=== PATIENT | male | born 1955 | race African-American/Black ===

== ENCOUNTER 2016-07-09 13:20 | Inpatient (IN) | payer MEDICARE, OTHER ==
[~2016-07-09] VITALS: Ht 185.4 cm; Wt 149.3 kg
[~2016-07-09 13:20] MED LIST: ALBU2.5V14 NEB; AMLO1TAB93 PO; ASPI325T4 PO; ASPI81TA9 PO; ATOR40TA59 PO; BUME1TAB PO; DILT120C97 PO; DILT90TA PO; FURO-68 PO; INSU100C SQ; INSU100I27 SQ; INSU100V13 SQ; IPRA4AER IH; ISOS30TA4 PO; ISOS40TA10 PO; LOSA1TAB16 PO; METO25TA4 PO; METO50TA2 PO; OXYC-250 PO; OXYC1TAB9 PO; POTA10TA10 PO; POTA10TA5 PO; SPIR25TA3 PO; TORS20TA2 PO; WARF10TA6 PO; WARF5TAB7 PO
[2016-07-09 14:31] LABS: BASO % 1 % (0-3); EOS % 3 % (0-3); HEMATOCRIT 43.7 % (39.0-53.0); LYMPH # 1.2 x10^3/uL (1.0-4.8); LYMPH % 17 % (24-48); MEAN CORPUSCULAR HEMOGLOBIN 31 pg (25-35); MEAN CORPUSCULAR HGB CONC 32 g/dL (31-37); MEAN CORPUSCULAR VOLUME 96 fL (79-100); MONO % 9 % (0-9); NEUT % 71 % (31-73); PLATELET COUNT 263 x10^3/uL (140-400); RED BLOOD COUNT 4.54 x10^6/uL (4.30-5.70); RED CELL DISTRIBUTION WIDTH 14.7 % (11.5-14.5); WHITE BLOOD COUNT 6.7 x10^3/uL (4.0-11.0)
[2016-07-09 14:44] LABS: CALCIUM 8.3 mg/dL (8.5-10.1); CREATININE 1.1 mg/dL (0.7-1.3); GFR 81.8; POTASSIUM 3.8 mmol/L (3.5-5.1)
--- NOTE | 2016-07-09 14:48 | EKG ---
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
--- NOTE | 2016-07-09 14:50 | RAD ---
Exam: AP portable chest. History: Shortness of breath for 2 days, worse lying down. Comparison: 06/26/2016. Findings: There is continued elevation of left hemidiaphragm. The heart and mediastinal structures are within normal limits for size. Lungs are without infiltrate. No pneumothorax or pleural effusion is appreciated. No failure is evident. Impression: 1. No acute cardiopulmonary process.
[2016-07-09] MEDS ORDERED: FUROSEMIDE 40 MG/4 ML VIAL. IVP ONE (15:15)
[2016-07-09] MEDS ORDERED: ONDANSETRON PF 4 MG/2 ML VIAL. IV PRN (15:30)
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
--- NOTE | 2016-07-09 17:12 | ACF ---
Admission Forms Criteria HEART FAILURE: COMMON COMPLICATIONS Clinical Indications for Inpatient Care (Place 'X' for any and all applicable criteria): Ongoing inpatient care may be indicated for heart failure with ANY ONE of the following (1)(2)(3)(4)(5): [ ]I. Ongoing need for care for primary condition requiring frequent therapy adjustments because of changes in cardiac function (eg, drug dosage changes for drugs that are renally metabolized) [ ]II. New-onset heart failure [ ]III. Heart failure with decreased urine output not responsive to attempts to optimize volume status [ ]IV. Acute cardiac ischemia causing or associated with failure [X]V. Complications of heart failure, including ANY ONE of the following: [ ]a) Pericardial effusion [ ]b) Symptomatic pleural effusion [ ]c) O2 saturation <90% or PO2 < 60 mm Hg (8.0 kPa) on room air or require baseline supplemental O2 [ ]d) Tachypnea [X]e) Dyspnea [ ]f) Syncope [ ]g) Change in mental status [ ]h) Acute renal insufficiency that is severe (reduction of more than 50% in estimated glomerular filtration rate from baseline) or progressive reduction of more than 25% in estimated glomerular filtration rate from baseline, with creatinine continuing to rise) [ ]i) Hemodynamic instability [ ]j) Anasarca [ ]k) Clinically significant metabolic abnormalities due to heart failure (eg, new-onset metabolic acidosis) Extended stay beyond goal length of stay for primary condition may be needed until ALL of the following are present(1)(3): [ ]a) Stable and effective diuretic regimen established (or patient on stable dialysis regimen if in chronic renal failure) [ ]b) Breathing comfortably at rest [ ]c) Saturation of arterial oxygen greater than 90% or at acceptable baseline [ ]d) Pulmonary edema absent or improved [ ]e) Hemodynamic stability [ ]f) Volume status acceptable on oral medication [ ]g) Peripheral or sacral edema absent or improved [ ]h) Renal function stable and manageable at a lower level of care [ ]i) Complications (eg, pleural effusion) resolved or manageable at a lower level of care [ ]j) Patient or caregiver has received written discharge instructions or educational material addressing activity level, diet, discharge medications, follow-up appointment, weight monitoring, and what to do if symptoms worsen The original [facility] [employer] content created by [employer] has been revised. The portions of the content which have been revised are identified through the use of italic text or in bold, and [facility] has neither reviewed nor approved the modified material.All other unmodified content is copyright [facility]. Please see references footnoted in the original [facility] edition 2016 Admission Criteria Met?: Yes ALLYN CHEW Jul 09, 2016 17:12
--- NOTE | 2016-07-09 18:55 | HP ---
ADMIT DATE: 07/09/2016 CHIEF COMPLAINT: Swollen legs and shortness of breath. HISTORY OF PRESENT ILLNESS: The patient is a pleasant 61-year-old male who has acute on chronic systolic and diastolic heart failure. Basically, he once again presents with shortness of breath and cough. He is swollen. He appears to be in clinical CHF. His BNP level is 812. I have discussed the case with the ER physician. We are going to admit the patient and consult Cardiology. PAST MEDICAL HISTORY: CHF, depression, anxiety, hypertension, diabetes, and hyperlipidemia. ALLERGIES: None. FAMILY HISTORY: Hypertension. SOCIAL HISTORY: Does not drink, smoke or take drugs. MEDICATIONS: Reviewed, please refer to the MRAD. REVIEW OF SYSTEMS: GENERAL: No history of weight change, weakness or fevers. SKIN: No bruising, hair changes or rashes. EYES: No blurred, double or loss of vision. NOSE AND THROAT: No history of nosebleeds, hoarseness or sore throat. HEART: No history of palpitations, chest pain or shortness of breath on exertion. LUNGS: Denies cough, hemoptysis, or wheezing. He complains of shortness of breath. GASTROINTESTINAL: Denies changes in appetite, nausea, vomiting, diarrhea or constipation. GENITOURINARY: No history of frequency, urgency, hesitancy or nocturia. NEUROLOGIC: Denies history of numbness, tingling, or tremor. He complains of weakness. PSYCHIATRIC: No history of panic, anxiety or depression. ENDOCRINE: No history of heat or cold intolerance, polyuria or polydipsia. EXTREMITIES: Denies muscle weakness, joint pain, pain on walking or stiffness. He complains of edema. PHYSICAL EXAMINATION: VITAL SIGNS: Temperature afebrile, pulse 68, respirations 18, and blood pressure 144/90. GENERAL: He is alert, cooperative, very pleasant. HEART: Normal S1, S2 with a soft S3. LUNGS: Diffuse crackles. ABDOMEN: Soft, positive bowel sounds, obese. EXTREMITIES: 2-3+ edema. SKIN: Thin and frail. ENDOCRINE: No thyromegaly. LYMPHATICS: No cervical nodes. HEMATOPOIETIC: He has got some slight stenosis on his arms. LABORATORY DATA: Pending. His BNP is 8. ASSESSMENT AND PLAN: Acute on chronic systolic and diastolic heart failure. The patient has been amenable, I gave him IV Lasix. Consult Cardiology, echocardiogram, serial enzymes, serial EKGs, cardiac monitoring, and home meds. NICKY RAUSCH DO DR: VASU/chandni JOB#: [id number] / [id number]
[2016-07-09] MEDS ORDERED: NON FORMULARY ITEM (Albuterol Sulfate (Albuterol Sulfate Conc Neb Soln) 1 VIAL) NEB PRN (20:00)
[2016-07-09] MEDS ORDERED: ALBUTEROL SULFATE 2.5 MG/3 ML NEBU. NEB PRN (20:15)
[2016-07-09] MEDS: OXYCODONE/APAP 10/325 TABLET. PO SCH (20:32)
[2016-07-09] MEDS: METOPROLOL TART IMMED RELEASE 50 MG TABLET. PO SCH (20:34)
[2016-07-09 20:41] LABS: INR 2.4 (0.8-1.1); PROTHROMBIN TIME PATIENT 24.5 SEC (11.7-14.0)
[2016-07-09] MEDS: INSULIN DETEMIR 300 UNITS/3 ML INSULN.PEN. SQ SCH ×2 (20:42→21:00)
[2016-07-09] MEDS ORDERED: NON FORMULARY ITEM (Insulin Detemir (Levemir) 40 UNIT) SQ SCH (21:00)
[2016-07-09] MEDS ORDERED: NON FORMULARY ITEM (Ipratropium/Albuterol Sulfate (Combivent Respimat Inhal) 2 INH) IH SCH (21:00)
[2016-07-09] MEDS ORDERED: WARFARIN 10 MG TABLET. PO SCH (21:00)
[2016-07-09] MEDS ORDERED: ATORVASTATIN CALCIUM 40 MG TABLET. PO SCH (21:00)
[2016-07-09 21:28] VITALS: BP 136/86
[2016-07-09] MEDS: IPRATRPIUM/ALBUTEROL 0.5/2.5MG 3 ML NEBU. NEB SCH (21:29)
[2016-07-09] MEDS ORDERED: MINERAL OIL/PETROLATUM TOPICAL CREAM 113GM JAR. TP PRN (23:00)
[2016-07-10] MEDS ORDERED: ALBUTEROL SULFATE 2.5 MG/3 ML NEBU. NEB PRN (01:00)
[2016-07-10] MEDS: OXYCODONE/APAP 10/325 TABLET. PO SCH ×2 (01:58→08:53)
[2016-07-10 02:30] VITALS: BP 155/104
[2016-07-10] MEDS ORDERED: LORAZEPAM 2 MG/ML VIAL. IV PRN (03:45)
[2016-07-10 05:09] LABS: BASO # 0.1 x10^3/uL (0.0-0.2); BASO % 1 % (0-3); EOS % 3 % (0-3); HEMATOCRIT 41.8 % (39.0-53.0); HEMOGLOBIN 14.1 g/dL (13.0-17.5); LYMPH # 1.9 x10^3/uL (1.0-4.8); LYMPH % 27 % (24-48); MEAN CORPUSCULAR HEMOGLOBIN 33 pg (25-35); MEAN CORPUSCULAR HGB CONC 34 g/dL (31-37); MEAN CORPUSCULAR VOLUME 97 fL (79-100); MONO % 13 % (0-9); NEUT % 56 % (31-73); PLATELET COUNT 242 x10^3/uL (140-400); RED BLOOD COUNT 4.31 x10^6/uL (4.30-5.70); RED CELL DISTRIBUTION WIDTH 14.8 % (11.5-14.5)
[2016-07-10 05:38] LABS: CALCIUM 8.4 mg/dL (8.5-10.1); GFR 91.3; POTASSIUM 3.6 mmol/L (3.5-5.1)
[2016-07-10 06:31] VITALS: BP 148/90
[2016-07-10] MEDS: IPRATRPIUM/ALBUTEROL 0.5/2.5MG 3 ML NEBU. NEB SCH ×2 (07:15→11:29)
[2016-07-10] MEDS ORDERED: INSULIN ASPART 300 UNITS/3 ML INSULN.PEN SQ SCH (07:30)
[2016-07-10] MEDS ORDERED: POTASSIUM CHLORIDE 10 MEQ TABLET.ER. PO SCH (08:00)
[2016-07-10] MEDS ORDERED: ASPIRIN ENTERIC COATED 81 MG TABLET.DR. PO SCH (08:00)
[2016-07-10] MEDS: METOPROLOL TART IMMED RELEASE 50 MG TABLET. PO SCH (08:50)
[2016-07-10 08:52] VITALS: BP 148/90
[2016-07-10] MEDS ORDERED: LOSARTAN POTASSIUM 50 MG TABLET. PO SCH (09:00)
[2016-07-10] MEDS ORDERED: DILTIAZEM HCL 120 MG CAP.ER.24H PO SCH (09:00)
[2016-07-10] MEDS ORDERED: BUMETANIDE 1 MG TABLET. PO SCH (09:00)
[2016-07-10] MEDS ORDERED: HYDROCHLOROTHIAZIDE 12.5 MG CAPSULE. PO SCH (09:00)
--- NOTE | 2016-07-10 09:03 | PDOC2 ---
ENEDINA LOCKE MARKETING SENIOR RECRUITER 07/10/16 0903: CARDIAC CONSULT DATE OF CONSULT Date of Consult DATE: 07/10/16 TIME: 08:51 REASON FOR CONSULT Reason for Consult: CHF exacerbation REFERRING PHYSICIAN Referring Physician: Chidi SOURCE Source: Chart review, Patient HISTORY OF PRESENT ILLNESS HISTORY OF PRESENT ILLNESS This is a 61 yo male admitted for complains of SOA and increasing leg edema. Pt currently denies any SOA and has been shouting, agitated, and displaying verbal abusive interaction to staff and security was notified and has been cooperative since. Pt lacks financial means as he verbalized that that he has been taking his medications routinely at home. From prior admission he has been noted with significant refusal with treatment adjustments. He continues to smoke tobacco as well. No notable CP, nausea, nor palpitations. Pt has been able to carry out conversation without SOA and at the time I ask him he has been having SOA he immediately said that "look at me (while he was hyperventilating) I am short of breath." PAST MEDICAL HISTORY Past Medical History Cardiovascular: AFIB, CHF (chronic diastolic), HTN, Hyperlipidemia Pulmonary: COPD CENTRAL NERVOUS SYSTEM: Peripheral neuropathy GI: GERD Psych: Addictions, bipolar? Musculoskeletal: Osteoarthritis Renal/: Chronic renal insuff Endocrine: Diabetes (with DPN), Hypothyroidism Dermatology: Other (venous stasis) PAST SURGICAL HISTORY Past Surgical History: Other (splenectomy) FAMILY HISTORY Family History: Hypertension SOCIAL HISTORY Smoke: 1 pack per day CURRENT MEDICATIONS CURRENT MEDICATIONS Current Medications Medications (Trade) Dose Ordered Sig/Nilton Route PRN Reason Start Time Stop Time Status Last Admin Dose Admin Furosemide (Lasix) 40 mg 1X ONCE IVP 07/09/16 15:15 07/09/16 15:18 DC 07/09/16 15:47 Atorvastatin Calcium (Lipitor) 40 mg QHS PO 07/09/16 21:00 07/09/16 20:33 Metoprolol Tartrate (Lopressor) 50 mg BID PO 07/09/16 21:00 07/09/16 20:34 Oxycodone/ Acetaminophen (Percocet 10/325) 2 tab QID PO 07/09/16 21:00 07/10/16 01:58 Warfarin Sodium (Coumadin) 10 mg QODAY@16 PO 07/09/16 21:00 07/09/16 22:49 Albuterol/ Ipratropium (Duoneb) 3 ml RTQID NEB 07/09/16 21:00 07/10/16 07:15 Albuterol Sulfate (Ventolin Neb Soln) 2.5 mg PRN Q4HRS PRN NEB SHORTNESS OF BREATH 07/10/16 01:00 07/10/16 02:18 ALLERGIES ALLERGIES: Coded Allergies: codeine (Verified Allergy, Intermediate, N/V, 04/05/15) MORPHINE OK ROS Review of System 14 point ROS evaluated with pertinent positives noted per HPI PHYSICAL EXAM General: Alert, Oriented X3, No acute distress HEENT: Atraumatic, Mucous membr. moist/pink Lungs: Clear to auscultation, Normal air movement Heart: Normal S1, Normal S2, Other (Controlled AFIB) Abdomen: Soft, Other (morbid obesity) Extremities: No cyanosis, Other (3+ bilateral LE pitting edema) Skin: No breakdown, No significant lesion Neuro: Normal speech, Sensation intact MUSCULOSKELETAL: Osteoarthritic changes both hands VITALS VITALS Vital Signs Date Time Temp Pulse Resp B/P Pulse Ox O2 Delivery O2 Flow Rate FiO2 07/10/16 07:16 95 Room Air 07/10/16 06:31 98.5 78 22 148/90 98.5 07/10/16 03:00 2.0 LABS Lab: Laboratory Tests Test 07/09/16 14:20 07/09/16 18:51 07/09/16 18:56 07/09/16 20:25 White Blood Count 6.7x10^3/uL (4.0-11.0) Red Blood Count 4.54x10^6/uL (4.30-5.70) Hemoglobin 14.0g/dL (13.0-17.5) Hematocrit 43.7% (39.0-53.0) Mean Corpuscular Volume 96fL (79-100) Mean Corpuscular Hemoglobin 31pg (25-35) Mean Corpuscular Hemoglobin Concent 32g/dL (31-37) Red Cell Distribution Width 14.7% (11.5-14.5) Platelet Count 263x10^3/uL (140-400) Neutrophils (%) (Auto) 71% (31-73) Lymphocytes (%) (Auto) 17% (24-48) Monocytes (%) (Auto) 9% (0-9) Eosinophils (%) (Auto) 3% (0-3) Basophils (%) (Auto) 1% (0-3) Neutrophils # (Auto) 4.7x10^3uL (1.8-7.7) Lymphocytes # (Auto) 1.2x10^3/uL (1.0-4.8) Monocytes # (Auto) 0.6x10^3/uL (0.0-1.1) Eosinophils # (Auto) 0.2x10^3/uL (0.0-0.7) Basophils # (Auto) 0.0x10^3/uL (0.0-0.2) Sodium Level 141mmol/L (136-145) Potassium Level 3.8mmol/L (3.5-5.1) Chloride Level 104mmol/L (98-107) Carbon Dioxide Level 31mmol/L (21-32) Anion Gap 6 (6-14) Blood Urea Nitrogen 19mg/dL (8-26) Creatinine 1.1mg/dL (0.7-1.3) Estimated GFR (Cockcroft-Gault) 81.8 Glucose Level 136mg/dL (70-99) Calcium Level 8.3mg/dL (8.5-10.1) Troponin I Quantitative < 0.017ng/mL (0.000-0.055) UV-Jjc-P-Type Natriuretic Peptide 812pg/mL (0-124) Glucose (Fingerstick) 112mg/dL (70-99) 123mg/dL (70-99) Prothrombin Time 24.5SEC (11.7-14.0) Prothromb Time International Ratio 2.4 (0.8-1.1) Test 07/10/16 04:35 White Blood Count 7.0x10^3/uL (4.0-11.0) Red Blood Count 4.31x10^6/uL (4.30-5.70) Hemoglobin 14.1g/dL (13.0-17.5) Hematocrit 41.8% (39.0-53.0) Mean Corpuscular Volume 97fL (79-100) Mean Corpuscular Hemoglobin 33pg (25-35) Mean Corpuscular Hemoglobin Concent 34g/dL (31-37) Red Cell Distribution Width 14.8% (11.5-14.5) Platelet Count 242x10^3/uL (140-400) Neutrophils (%) (Auto) 56% (31-73) Lymphocytes (%) (Auto) 27% (24-48) Monocytes (%) (Auto) 13% (0-9) Eosinophils (%) (Auto) 3% (0-3) Basophils (%) (Auto) 1% (0-3) Neutrophils # (Auto) 3.9x10^3uL (1.8-7.7) Lymphocytes # (Auto) 1.9x10^3/uL (1.0-4.8) Monocytes # (Auto) 0.9x10^3/uL (0.0-1.1) Eosinophils # (Auto) 0.2x10^3/uL (0.0-0.7) Basophils # (Auto) 0.1x10^3/uL (0.0-0.2) Sodium Level 139mmol/L (136-145) Potassium Level 3.6mmol/L (3.5-5.1) Chloride Level 102mmol/L (98-107) Carbon Dioxide Level 28mmol/L (21-32) Anion Gap 9 (6-14) Blood Urea Nitrogen 20mg/dL (8-26) Creatinine 1.0mg/dL (0.7-1.3) Estimated GFR (Cockcroft-Gault) 91.3 Glucose Level 203mg/dL (70-99) Calcium Level 8.4mg/dL (8.5-10.1) ECHOCARDIOGRAM ECHOCARDIOGRAM <Conclusion> Grossly normal LV systolic function and wall motion. EF 65% No significant valvular abnormalities. Unable to accurately assess diastolic function but do not suspect severe dysfunction. Technically limited study due to body habitus. DATE: 04/05/15 1938 ASSESSMENT/PLAN ASSESSMENT/PLAN 1. Suspect AECOPD with underlying DESEAN: no inhalers, defer to PCP 2. Chronic diastolic CHF: Currently no SOA. compensated. 3. Likely Chronic lymphedema with underlying venous insufficiency: no pain 4. Chronic AFIB: rate controlled. Coumadin on board with INR at 2.4 4. HTN: controlled 5. morbid obesity: BMI 43 6. DM2: uncontrolled BG 7. Noncompliance: known with recent hospitalization with refusal to treatment adjustments. 8. Tobaccoism 9. Agitation: manipulative behavior. Verbally abusive, security at the bedside and now cooperating. Recommendations 1. Lower leg compression stocking, elevation encouraged 2. Continue current diuretic therapy. 3. Continue with diltiazem, metoprolol and coumadin 4. Encouraged treatment compliance and lifestyle modifications Problems: MADDIE TEAGUE MD 07/10/16 1504: CARDIAC CONSULT ALLERGIES ALLERGIES: Coded Allergies: codeine (Verified Allergy, Intermediate, N/V, 04/05/15) MORPHINE OK ASSESSMENT/PLAN ASSESSMENT/PLAN Patient seen and examined. Agree with above nurse practitioner noted. Patient well known to me from his previous visits. He has psychiatric illness and is also noncompliant. He unfortunately did not want to stay in the hospital at his last visit when advised to do so given his decompensate heart failure. His home medications are unclear because the patient is not aware of what he is exactly taking. He has chronic pitting bilateral 3+ lower extremity edema with dyspnea as well as rales at the lung bases. We will continue aggressive diuresis. Unfortunately, patient has been combative and not keeping his IVs in. Supportive care at this time. He will ultimately likely to require home care to ensure that he has compliance with medications. Problems: ENEDINA LOCKE APRN Jul 10, 2016 09:03 MADDIE TEAGUE MD Jul 10, 2016 15:04
[2016-07-10] MEDS ORDERED: DEXTROSE 4 GM PO PRN (11:30)
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
[2016-07-10] MEDS ORDERED: WARFARIN 5 MG TABLET. PO SCH ×2 (16:00)
[2016-07-10] MEDS ORDERED: WARFARIN 4 MG TABLET. PO SCH (16:00)
== END 2016-07-10 14:25 | disposition home or self-care (01) | DRG 291 ==
LOC: ER 13:20 → 2 NORTH 15:23
PROVIDERS: ADMIT Internal Medicine; ATTEND Internal Medicine
DX: I50.43 Acute on chronic combined systolic (congestive) and diastolic (congestive) heart failure (principal); J96.20 Acute and chronic respiratory failure, unspecified whether with hypoxia or hypercapnia; Z68.41 Body mass index [BMI] 40.0-44.9, adult; J44.1 Chronic obstructive pulmonary disease with (acute) exacerbation; I11.0 Hypertensive heart disease with heart failure; E03.9 Hypothyroidism, unspecified; E11.65 Type 2 diabetes mellitus with hyperglycemia; E66.01 Morbid (severe) obesity due to excess calories; E78.5 Hyperlipidemia, unspecified; F17.200 Nicotine dependence, unspecified, uncomplicated; I25.10 Atherosclerotic heart disease of native coronary artery without angina pectoris; I48.2 Chronic atrial fibrillation; I87.2 Venous insufficiency (chronic) (peripheral); I87.8 Other specified disorders of veins; I89.0 Lymphedema, not elsewhere classified; K21.9 Gastro-esophageal reflux disease without esophagitis; F32.9 Major depressive disorder, single episode, unspecified; F41.9 Anxiety disorder, unspecified; M19.90 Unspecified osteoarthritis, unspecified site; Z91.19 Patient's noncompliance with other medical treatment and regimen; Z90.81 Acquired absence of spleen; Z82.49 Family history of ischemic heart disease and other diseases of the circulatory system; Z79.01 Long term (current) use of anticoagulants; Z88.6 Allergy status to analgesic agent
CPT/HCPCS: 36415; 71010; 80048; 82947; 83880; 84484; 85027; 85610; 93005; 94250; 94640; 94760; 96374; 99406; J1815; J1940; J7620; 99285-25

== ENCOUNTER 2016-08-06 22:59 | Emergency (ER) | payer OTHER, MEDICARE ==
[~2016-08-06] VITALS: Ht 188 cm; Wt 149.2 kg
[~2016-08-06 22:59] MED LIST changes: +ASPI-612 PO; -ASPI325T4 PO; +ASPI325T8 PO; -ASPI81TA9 PO; +DILT120C80 PO; -DILT120C97 PO; -OXYC-250 PO; +OXYC-328 PO; -POTA10TA10 PO; +POTA10TA12 PO
[2016-08-06 23:10] VITALS: BP 138/89
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
== END 2016-08-07 00:01 | disposition left against medical advice (07) ==
LOC: ER 22:59
DX: R60.9 Edema, unspecified (principal); I48.91 Unspecified atrial fibrillation; I11.0 Hypertensive heart disease with heart failure; I50.9 Heart failure, unspecified; I25.10 Atherosclerotic heart disease of native coronary artery without angina pectoris; J44.9 Chronic obstructive pulmonary disease, unspecified; E11.9 Type 2 diabetes mellitus without complications; Z90.81 Acquired absence of spleen; Z88.5 Allergy status to narcotic agent
CPT/HCPCS: 99284

== ENCOUNTER 2017-04-09 20:37 | Emergency (ER) | payer MEDICARE, OTHER ==
[2017-04-09 21:12] LABS: ADD MAN DIFF? NO
[2017-04-09 21:17] LABS: BASO # 0.1 x10^3/uL (0.0-0.2); BASO % 1 % (0-3); EOS # 0.4 x10^3/uL (0.0-0.7); EOS % 3 % (0-3); HEMATOCRIT 44.4 % (39.0-53.0); HEMOGLOBIN 14.8 g/dL (13.0-17.5); LYMPH # 1.9 x10^3/uL (1.0-4.8); LYMPH % 17 % (24-48); MEAN CORPUSCULAR HEMOGLOBIN 33 pg (25-35); MEAN CORPUSCULAR HGB CONC 33 g/dL (31-37); MEAN CORPUSCULAR VOLUME 97 fL (79-100); MONO # 1.2 x10^3/uL (0.0-1.1); MONO % 11 % (0-9); NEUT # 7.7 x10^3uL (1.8-7.7); NEUT % 68 % (31-73); PLATELET COUNT 324 x10^3/uL (140-400); RED BLOOD COUNT 4.57 x10^6/uL (4.30-5.70); RED CELL DISTRIBUTION WIDTH 15.5 % (11.5-14.5); WHITE BLOOD COUNT 11.3 x10^3/uL (4.0-11.0)
[2017-04-09 21:26] LABS: ANION GAP 8 (6-14); BLOOD UREA NITROGEN 26 mg/dL (8-26); CALCIUM 8.9 mg/dL (8.5-10.1); CARBON DIOXIDE 34 mmol/L (21-32); CHLORIDE 98 mmol/L (98-107); CREATININE 1.2 mg/dL (0.7-1.3); GFR 73.8; GLUCOSE 272 mg/dL (70-99); POTASSIUM 3.9 mmol/L (3.5-5.1); SODIUM 140 mmol/L (136-145)
[2017-04-09 21:32] LABS: ALBUMIN 3.3 g/dL (3.4-5.0); ALK PHOS 77 U/L (46-116); ALT (SGPT) 18 U/L (16-63); AST (SGOT) 24 U/L (15-37); DIRECT BILIRUBIN 0.1 mg/dL (0.0-0.2); LIPASE 72 U/L (73-393); TOTAL BILIRUBIN 0.3 mg/dL (0.2-1.0); TOTAL PROTEIN 7.8 g/dL (6.4-8.2)
[2017-04-09 21:35] LABS: TROPONINI < 0.017 ng/mL (0.000-0.055)
[2017-04-09 21:40] LABS: LACTIC ACID 1.5 mmol/L (0.4-2.0)
[2017-04-09 21:43] LABS: NT-PRO BNP 1029 pg/mL (0-124)
[2017-04-09 21:52] LABS: BILIRUBIN,URINE NEGATIVE (NEG); CLARITY,URINE CLOUDY; COLOR,URINE YELLOW; GLUCOSE,URINE 250 mg/dL (NEG); NITRITE,URINE NEGATIVE (NEG); PROTEIN,URINE NEGATIVE (NEG-TRACE)
[2017-04-09 21:57] LABS: INFLUENZA A PATIENT NEGATIVE (NEGATIVE); INFLUENZA B PATIENT NEGATIVE (NEGATIVE); OBC FLU VALID
[2017-04-09 21:58] LABS: BACTERIA,URINE 0 /HPF (0-FEW); RBC,URINE OCC /HPF (0-2); SQUAMOUS EPITHELIAL CELL,UR OCC /LPF
[2017-04-09] MEDS: OSELTAMIVIR 75 MG CAPSULE PO (22:40)
== END 2017-04-09 23:45 | disposition home or self-care (01) ==
LOC: ER 23:45
DX: R05 Cough (principal); R09.81 Nasal congestion; R10.9 Unspecified abdominal pain; I11.0 Hypertensive heart disease with heart failure; I50.9 Heart failure, unspecified; I48.91 Unspecified atrial fibrillation; E11.9 Type 2 diabetes mellitus without complications; I25.10 Atherosclerotic heart disease of native coronary artery without angina pectoris; J44.9 Chronic obstructive pulmonary disease, unspecified; Z90.81 Acquired absence of spleen; Z88.5 Allergy status to narcotic agent
CPT/HCPCS: 36415; 80048; 80076; 81001; 83605; 83690; 83880; 84484; 85025; 87086; 87804; 87804-59; 93005; 99285-25

== ENCOUNTER 2017-04-13 00:48 | Emergency (ER) | payer MEDICARE, OTHER ==
[2017-04-13] MEDS ORDERED: IOHEXOL 300 MG/ML 100ML VIAL. IV ×2 (01:30)
[2017-04-13] MEDS ORDERED: CONTRAST GIVEN MC ×2 (01:45)
[2017-04-13 02:22] LABS: ADD MAN DIFF? NO
[2017-04-13 02:30] LABS: BASO # 0.1 x10^3/uL (0.0-0.2); BASO % 1 % (0-3); EOS # 0.2 x10^3/uL (0.0-0.7); EOS % 3 % (0-3); HEMATOCRIT 44.7 % (39.0-53.0); LYMPH # 1.8 x10^3/uL (1.0-4.8); LYMPH % 20 % (24-48); MEAN CORPUSCULAR HEMOGLOBIN 33 pg (25-35); MEAN CORPUSCULAR HGB CONC 34 g/dL (31-37); MEAN CORPUSCULAR VOLUME 98 fL (79-100); MONO % 11 % (0-9); NEUT # 5.8 x10^3uL (1.8-7.7); NEUT % 65 % (31-73); PLATELET COUNT 326 x10^3/uL (140-400); RED BLOOD COUNT 4.58 x10^6/uL (4.30-5.70); RED CELL DISTRIBUTION WIDTH 15.3 % (11.5-14.5); WHITE BLOOD COUNT 8.9 x10^3/uL (4.0-11.0)
[2017-04-13 02:52] LABS: ANION GAP 6 (6-14); BLOOD UREA NITROGEN 44 mg/dL (8-26); BUN/CREATININE RATIO 26 (6-20); CALCIUM 8.8 mg/dL (8.5-10.1); CARBON DIOXIDE 35 mmol/L (21-32); CHLORIDE 96 mmol/L (98-107); CREATININE 1.7 mg/dL (0.7-1.3); GFR 49.3; GLUCOSE 348 mg/dL (70-99); SODIUM 137 mmol/L (136-145)
[2017-04-13 02:58] LABS: ALBUMIN 3.3 g/dL (3.4-5.0); ALBUMIN/GLOBULIN RATIO 0.8 (1.0-1.7); ALK PHOS 76 U/L (46-116); ALT (SGPT) 16 U/L (16-63); AST (SGOT) 21 U/L (15-37); TOTAL BILIRUBIN 0.2 mg/dL (0.2-1.0); TOTAL PROTEIN 7.2 g/dL (6.4-8.2)
[2017-04-13 03:03] LABS: NT-PRO BNP 550 pg/mL (0-124)
[2017-04-13 03:06] LABS: TROPONINI < 0.017 ng/mL (0.000-0.055)
[2017-04-13] MEDS ORDERED: KETOROLAC 30 MG/ML INJ. ×2 (03:06)
[2017-04-13] MEDS: KETOROLAC 30 MG/ML INJ. IV ×2 (03:30)
[2017-04-13 03:33] LABS: INR 1.2 (0.8-1.1); PROTHROMBIN TIME PATIENT 14.8 SEC (11.7-14.0)
[2017-04-13] MEDS: IV NORMAL SALINE 1000ML BAG 1,000 ML IV ×4 (04:15→04:20)
[2017-04-13] MEDS ORDERED: HALOPERIDOL LACTATE 5 MG/ML VIAL. IVP ×2 (05:00)
== END 2017-04-13 06:00 | disposition home or self-care (01) ==
LOC: ER 00:48
DX: K80.20 Calculus of gallbladder without cholecystitis without obstruction (principal); K57.30 Diverticulosis of large intestine without perforation or abscess without bleeding; I27.21 Secondary pulmonary arterial hypertension; I48.91 Unspecified atrial fibrillation; I11.0 Hypertensive heart disease with heart failure; I50.9 Heart failure, unspecified; I25.10 Atherosclerotic heart disease of native coronary artery without angina pectoris; E11.9 Type 2 diabetes mellitus without complications; J44.9 Chronic obstructive pulmonary disease, unspecified
CPT/HCPCS: 36415; 71250; 74176; 80053; 83880; 84484; 85025; 85610; 93005; 96361; 96374; 99285-25; J1885; J7030

== ENCOUNTER 2017-10-18 17:32 | Emergency (ER) | payer OTHER | END 2017-10-18 21:14 | disposition home or self-care (01) | LOC: ER 21:14 | DX: I48.91 Unspecified atrial fibrillation (principal); S80.02XA Contusion of left knee, initial encounter; S80.12XA Contusion of left lower leg, initial encounter; I11.0 Hypertensive heart disease with heart failure; I50.9 Heart failure, unspecified; J44.9 Chronic obstructive pulmonary disease, unspecified; E11.9 Type 2 diabetes mellitus without complications; I25.10 Atherosclerotic heart disease of native coronary artery without angina pectoris; Z90.49 Acquired absence of other specified parts of digestive tract; Z79.01 Long term (current) use of anticoagulants; Z88.5 Allergy status to narcotic agent; W10.9XXA Fall (on) (from) unspecified stairs and steps, initial encounter; Y93.01 Activity, walking, marching and hiking; Y99.8 Other external cause status; Y92.098 Other place in other non-institutional residence as the place of occurrence of the external cause | CPT/HCPCS: 73562; 73590; 99284 ==

== ENCOUNTER 2017-10-23 21:55 | Inpatient (IN) | payer MEDICARE, OTHER ==
[~2017-10-23] VITALS: Ht 180.3 cm; Wt 158.8 kg
[~2017-10-23 21:55] MED LIST changes: +BUME2TAB PO; +HYDR25TA9 PO; +INSU200I SQ; -LOSA1TAB16 PO; +LOSA1TAB19 PO; +LOSA50TA6 PO; -METO50TA2 PO; +METO50TA6 PO; +ONDA4TAB10 SL; +OSEL75CA PO; +OXYC-411 PO; -OXYC1TAB9 PO; -POTA10TA5 PO; +POTA20TA82 PO; -SPIR25TA3 PO; +SPIR25TA5 PO; +WARF-31 PO; +WARF10TA40 PO; +WARF10TA45 PO; -WARF10TA6 PO; +WARF3TAB50 PO; -WARF5TAB7 PO
[2017-10-23] MEDS ORDERED: fentaNYL PF VIAL 100 MCG/2 ML VIAL IV ONE (23:30)
[2017-10-23] MEDS ORDERED: IPRATRPIUM/ALBUTEROL 0.5/2.5MG 3 ML NEBU. NEB ONE (23:30)
[2017-10-23] MEDS ORDERED: FUROSEMIDE 20 MG/2 ML VIAL. IVP ONE (23:30)
--- NOTE | 2017-10-23 23:51 | RAD ---
Three-view left foot radiographs 10/23/2017 CLINICAL HISTORY: Left foot pain. AP, lateral and oblique digital radiographs of the left foot were obtained. There is diffuse osteopenia of the visualized bony structures. No fracture or dislocation left foot is seen. Pes planus deformity is noted. Soft tissue swelling is seen along the dorsal aspect of the left foot. Moderate enthesophyte formation is seen involving the posterior plantar aspect of the left calcaneus. Mild to moderate degenerative changes are seen throughout the interphalangeal and first MTP joint of the left foot along with the tarsometatarsal, midtarsal and talonavicular joints. IMPRESSION: Degenerative changes are seen involving the left foot as outlined above. No acute osseous abnormality is seen. Electronically signed by: Jhony Nair MD (10/23/2017 11:48 PM) [facility]
[2017-10-24] MEDS ORDERED: VANCOMYCIN 2 GM in IV NORMAL SALINE 500ML BAG 500 ML IV ONE ×2
--- NOTE | 2017-10-24 00:02 | RAD ---
AP portable chest radiograph 10/23/2017 Clinical History: Chest pain and shortness of breath. An AP erect portable digital radiograph of the chest was obtained. Comparison study is dated July 09, 2016. The cardiac silhouette is mildly enlarged. The thoracic aorta is mildly tortuous. Atherosclerotic calcification of the thoracic aorta is seen. Blunting of the left costophrenic angle is seen which may represent pleural thickening versus a small left pleural effusion, unchanged. No acute pulmonary infiltrate is noted. No pneumothorax is seen. Degenerative changes are seen involving the thoracic spine. Impression: No acute abnormality is seen. Electronically signed by: Jhony Nair MD (10/23/2017 11:58 PM) [facility]
--- NOTE | 2017-10-24 00:43 | RAD ---
EXAM: Left lower extremity venous Doppler. HISTORY: Left lower extremity pain/swelling. Bruising. COMPARISON: None. FINDINGS: Grayscale and Doppler analysis of the left lower extremity deep venous system was performed with graded compression and augmentation. The common femoral, greater saphenous, superficial femoral, popliteal and calf veins were assessed. There is no evidence of deep venous thrombosis. The calf veins are not well visualized. A left inguinal lymph node measures 1.8 x 1.5 cm and has a minimal fatty hilus. Another measures 1.6 x 1.2 cm also with cortical thickening. Another measures 3.0 x 1.2 cm and has a fatty hilus. IMPRESSION: 1. No evidence of deep venous thrombosis. 2. Prominent left inguinal lymph nodes. Correlate for left lower extremity inflammation or other potential causes. Electronically signed by: Adán Ritter MD (10/24/2017 12:39 AM) [facility]
[2017-10-24 00:53] LABS: BASO # 0.1 x10^3/uL (0.0-0.2); BASO % 1 % (0-3); EOS # 0.2 x10^3/uL (0.0-0.7); EOS % 3 % (0-3); HEMATOCRIT 40.1 % (39.0-53.0); HEMOGLOBIN 12.9 g/dL (13.0-17.5); LYMPH # 1.7 x10^3/uL (1.0-4.8); LYMPH % 20 % (24-48); MEAN CORPUSCULAR HEMOGLOBIN 32 pg (25-35); MEAN CORPUSCULAR HGB CONC 32 g/dL (31-37); MEAN CORPUSCULAR VOLUME 99 fL (79-100); MONO # 1.2 x10^3/uL (0.0-1.1); MONO % 14 % (0-9); NEUT # 5.3 x10^3uL (1.8-7.7); NEUT % 63 % (31-73); PLATELET COUNT 322 x10^3/uL (140-400); RED BLOOD COUNT 4.04 x10^6/uL (4.30-5.70); RED CELL DISTRIBUTION WIDTH 15.8 % (11.5-14.5); WHITE BLOOD COUNT 8.5 x10^3/uL (4.0-11.0)
[2017-10-24 00:56] LABS: PROTHROMBIN TIME PATIENT 32.1 SEC (11.7-14.0)
[2017-10-24 01:00] LABS: CALCIUM 8.9 mg/dL (8.5-10.1); GFR 40.9; POTASSIUM 3.9 mmol/L (3.5-5.1)
[2017-10-24 01:06] LABS: ALBUMIN 3.1 g/dL (3.4-5.0); ALBUMIN/GLOBULIN RATIO 0.6 (1.0-1.7); TOTAL BILIRUBIN 0.7 mg/dL (0.2-1.0); TOTAL PROTEIN 8.3 g/dL (6.4-8.2)
[2017-10-24 01:13] LABS: BILIRUBIN,URINE NEGATIVE (NEG); CLARITY,URINE CLEAR; COLOR,URINE YELLOW; NITRITE,URINE NEGATIVE (NEG); PH,URINE 5.5; PROTEIN,URINE NEGATIVE (NEG-TRACE)
[2017-10-24 01:19] LABS: BARBITURATES NEG (NEG); BENZODIAZEPINES NEG (NEG); CANNABINOIDS NEG (NEG); COCAINE POS (NEG); METHADONE NEG (NEG); OPIATES NEG (NEG); PHENCYCLIDINE NEG (NEG)
[2017-10-24 01:20] LABS: BACTERIA,URINE 0 /HPF (0-FEW); HYALINE CASTS, URINE MODERATE /HPF; SQUAMOUS EPITHELIAL CELL,UR FEW /LPF; WBC,URINE RARE /HPF (0-4)
[2017-10-24] MEDS: VANCOMYCIN PER PHARMACY MC PRN (01:22)
[2017-10-24 01:25] LABS: AMPHETAMINE/METHAMPHETAMINE NEG (NEG)
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
[2017-10-24] MEDS ORDERED: oxyCODONE/APAP 5/325 1 TAB TABLET PO ONE (02:45)
[2017-10-24 03:30] VITALS: BP 134/83
[2017-10-24] MEDS ORDERED: HYDR25TA9 PO (03:30)
[2017-10-24] MEDS ORDERED: oxyCODONE/APAP 10/325 1 TAB TABLET PO PRN (04:30)
[2017-10-24] MEDS ORDERED: fentaNYL PF VIAL 100 MCG/2 ML VIAL IV PRN (04:30)
[2017-10-24 07:00] VITALS: BP 104/70
[2017-10-24] MEDS: IPRATRPIUM/ALBUTEROL 0.5/2.5MG 3 ML NEBU. NEB SCH ×4 (07:23→19:55)
--- NOTE | 2017-10-24 07:31 | EKG ---
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
[2017-10-24] MEDS ORDERED: IPRATRPIUM/ALBUTEROL 0.5/2.5MG 3 ML NEBU. NEB SCH (08:00)
[2017-10-24] MEDS ORDERED: DEXTROSE 50% 25 GM / 50ML DISP.SYRIN. IV PRN (08:15)
[2017-10-24] MEDS ORDERED: ONDANSETRON ODT 4 MG TAB.RAPDIS. PO PRN (08:15)
[2017-10-24] MEDS: INSULIN LISPRO 300 UNITS/3 ML INSULN.PEN. SQ SCH ×5 (08:28→17:15)
[2017-10-24] MEDS ORDERED: ALBUTEROL SULFATE 2.5 MG/3 ML NEBU. NEB PRN (08:30)
[2017-10-24] MEDS: METOPROLOL TART IMMED RELEASE 50 MG TABLET. PO SCH ×2 (09:00→21:07)
[2017-10-24] MEDS: LOSARTAN POTASSIUM 50 MG TABLET. PO SCH (09:00)
[2017-10-24] MEDS: ASPIRIN ENTERIC COATED 81 MG TABLET.DR. PO SCH (09:31)
[2017-10-24] MEDS: hydroCHLOROthiazide 25 MG TABLET PO SCH (09:32)
[2017-10-24] MEDS: POTASSIUM CHLORIDE 20 MEQ TABLET.ER. PO SCH ×3 (09:32→17:19)
[2017-10-24] MEDS: BUMETANIDE 1 MG TABLET. PO SCH ×3 (09:37→17:19)
[2017-10-24] MEDS: oxyCODONE/APAP 10/325 1 TAB TABLET PO PRN ×2 (09:53→17:19)
[2017-10-24 11:00] VITALS: BP 125/75
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
[2017-10-24 15:00] VITALS: BP 134/65
--- NOTE | 2017-10-24 15:43 | RAD ---
Left knee, 2 views, 10/24/2017: HISTORY: Knee pain and swelling Comparison is made to a study from 10/18/2017. No fracture or dislocation is identified. There is minimal marginal spurring at the knee joint and at the patellofemoral articulation. No large joint effusion is seen. There is considerable generalized subcutaneous edema. IMPRESSION: 1. Mild degenerative change. 2. No acute bony abnormality is detected. 3. Moderate subcutaneous edema. Electronically signed by: Hernan Corcoran MD (10/24/2017 3:40 PM) [facility]
[2017-10-24 19:00] VITALS: BP 122/65
[2017-10-24] MEDS: INSULIN GLARGINE 300 UNITS/3 ML INSULN.PEN. SQ SCH (21:00)
[2017-10-24] MEDS: LACTOBACILLUS RHAMNOSUS GG 1 CAPSULE. PO SCH (21:07)
[2017-10-24] MEDS: ATORVASTATIN CALCIUM 40 MG TABLET. PO SCH (21:07)
[2017-10-25] VITALS (13 sets, daily range): BP systolic 91–142; BP diastolic 58–93
[2017-10-25] MEDS: VANCOMYCIN 2 GM in IV NORMAL SALINE 500ML BAG 500 ML IV SCH (00:28)
[2017-10-25] MEDS: oxyCODONE/APAP 10/325 1 TAB TABLET PO PRN (05:15)
[2017-10-25] MEDS: IPRATRPIUM/ALBUTEROL 0.5/2.5MG 3 ML NEBU. NEB SCH ×4 (07:22→20:03)
[2017-10-25] MEDS: INSULIN LISPRO 300 UNITS/3 ML INSULN.PEN. SQ SCH ×6 (08:00→18:06)
--- NOTE | 2017-10-25 08:02 | EKG ---
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
[2017-10-25] MEDS: LACTOBACILLUS RHAMNOSUS GG 1 CAPSULE. PO SCH ×2 (08:44→21:00)
[2017-10-25] MEDS: BUMETANIDE 1 MG TABLET. PO SCH ×3 (08:44→17:00)
[2017-10-25] MEDS: METOPROLOL TART IMMED RELEASE 50 MG TABLET. PO SCH ×2 (08:45→21:00)
[2017-10-25] MEDS: ASPIRIN ENTERIC COATED 81 MG TABLET.DR. PO SCH (08:45)
[2017-10-25] MEDS: POTASSIUM CHLORIDE 20 MEQ TABLET.ER. PO SCH ×3 (08:45→17:00)
[2017-10-25] MEDS: LOSARTAN POTASSIUM 50 MG TABLET. PO SCH (08:46)
[2017-10-25] MEDS: hydroCHLOROthiazide 25 MG TABLET PO SCH (08:49)
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
[2017-10-25] MEDS ORDERED: ACETAMINOPHEN 500 MG TABLET PO PRN (09:30)
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
[2017-10-25 12:20] LABS: BASE EXCESS ABG 10 mmol/L (-3-3); HCO3 ABG 44 mmol/L (21-28); PO2 ABG 89 mmHg (65-108); SAT O2 ABG 95 % (92-99)
[2017-10-25 12:47] LABS: FIO2 ABG 52; PCO2 ABG 134 mmHg (35-46)
--- NOTE | 2017-10-25 14:20 | RAD ---
EXAM: CHEST 1 VIEW History: Respiratory distress COMPARISON: 10/23/2017 TECHNIQUE: Single portable radiograph of the chest FINDINGS: Lung volumes and technique accentuates heart size and pulmonary vascularity. Unchanged moderate cardiomegaly. There is mild prominent appearing bilateral interstitial lung markings. The left costophrenic angle is not clearly identified due to patient body habitus. Mild left lung base airspace opacity could be due to overlapping soft tissue or atelectasis or infiltrate. IMPRESSION: 1. Mild congestive changes. 2. Mild left lung base airspace opacity could be atelectasis or infiltrate or due to overlapping soft tissue. Electronically signed by: Daniel Fang MD (10/25/2017 2:16 PM) [id number]
--- NOTE | 2017-10-25 14:21 | CONS ---
DATE OF CONSULTATION: ATTENDING PHYSICIAN: Dr. Roberts. REASON FOR CONSULTATION: [id number] hypercapnic respiratory failure. HISTORY OF PRESENT ILLNESS: The patient is a 62-year-old male who is morbidly obese with a BMI of 45.5. He has history of COPD, history of obstructive sleep apnea and suspected obesity hypoventilation syndrome. He was brought into the hospital after he was noted to have more swelling of his lower extremities. The patient was admitted with a diagnosis of cellulitis. His lower extremity Dopplers were negative. This morning, a rapid response was called as he was found to be lethargic. His arterial blood gases revealed a pH of 7.14, pCO2 of 130, pO2 of 89 and a bicarbonate of 44, suggesting acute on chronic hypercapnic respiratory failure. He did receive 2 tablets of oxycodone. The patient received Narcan and did woke up. He was immediately placed on BiPAP. I was consulted, and I have given the settings of the BiPAP. He is awake, following commands. He says he does not appear to be in any obvious respiratory distress. He admits to smoking 20 years of tobacco. He also has a urine drug screen positive for cocaine. Denies any headaches. No nausea, vomiting, no diarrhea. He has lower extremity edema with some rash. PAST MEDICAL HISTORY: History of AFib, history of CAD, history of CHF, COPD, type 2 diabetes, morbid obesity, history of DESEAN. PAST SURGICAL HISTORY: Cholecystectomy and colectomy. ALLERGIES: None. MEDICATIONS: All reviewed as listed in the MRAD including antibiotics. REVIEW OF SYSTEMS: Ten-point system review was obtained. Pertinent positives discussed in my history of present illness, otherwise noncontributory. All systems that were negative were reviewed as well. SOCIAL HISTORY: Smoked for 20 years before quitting. FAMILY HISTORY: Noncontributory to lungs. PHYSICAL EXAMINATION: GENERAL: He is awake, following commands, while on BiPAP. VITAL SIGNS: Blood pressure is 111/78, afebrile, pulse ox 93% on BiPAP 30% FiO2. HEENT: Sclerae nonicteric. NECK: Supple. LUNGS: Diminished breath sounds. CARDIOVASCULAR: Regular rate and rhythm. ABDOMEN: Soft, obese. EXTREMITIES: With bilateral pitting edema and erythema. LABORATORY DATA: Reviewed. ABGs are discussed in my history of present illness. His BUN and creatinine are 38 and 2.0. INR is 2.6. White cell count 8.5. IMPRESSION: 1. [id number] hypercapnic respiratory failure, contributed by narcotics and also related to underlying obesity hypoventilation syndrome. 2. Underlying chronic obstructive pulmonary disease. 3. Lower extremity edema with erythema, being treated for cellulitis. 4. Cocaine abuse. 5. Chronic anticoagulation with Coumadin. RECOMMENDATIONS: 1. The patient is much more awake, is status post Narcan. We will continue BiPAP for now and repeat ABGs in 2 hours. 2. Once the pH is compensated, then we will discontinue BiPAP. 3. Discontinue narcotics. 4. Antibiotics per Infectious Diseases. 5. Anticoagulation per PCP. 6. Continue bronchodilators. 7. Discussed with RN and RT. Critical care time 37 minutes. SHELLY CHA MD DR: ALLISON/chandni JOB#: [id number] / [id number]
[2017-10-25] MEDS: VANCOMYCIN PER PHARMACY MC PRN (14:34)
[2017-10-25 14:57] LABS: BASO % 1 % (0-3); EOS % 1 % (0-3); HEMATOCRIT 38.7 % (39.0-53.0); HEMOGLOBIN 12.5 g/dL (13.0-17.5); LYMPH # 0.9 x10^3/uL (1.0-4.8); LYMPH % 12 % (24-48); MEAN CORPUSCULAR HEMOGLOBIN 32 pg (25-35); MEAN CORPUSCULAR HGB CONC 32 g/dL (31-37); MEAN CORPUSCULAR VOLUME 99 fL (79-100); MONO # 1.2 x10^3/uL (0.0-1.1); MONO % 17 % (0-9); NEUT % 70 % (31-73); PLATELET COUNT 341 x10^3/uL (140-400); RED BLOOD COUNT 3.91 x10^6/uL (4.30-5.70); RED CELL DISTRIBUTION WIDTH 15.9 % (11.5-14.5); WHITE BLOOD COUNT 7.2 x10^3/uL (4.0-11.0)
[2017-10-25] MEDS ORDERED: NOREPINEPHRIN 8MG/250ML PREMIX 250 ML IV PRN (15:00)
[2017-10-25] MEDS ORDERED: IV NORMAL SALINE 1000ML BAG 1,000 ML IV ONE (15:00)
[2017-10-25] MEDS: NALOXONE 0.4 MG/ML VIAL. IV PRN ×2 (15:08→15:14)
[2017-10-25 15:13] LABS: CALCIUM 8.9 mg/dL (8.5-10.1); GFR 40.9; POTASSIUM 4.7 mmol/L (3.5-5.1)
[2017-10-25 15:19] LABS: ALBUMIN 2.6 g/dL (3.4-5.0); ALBUMIN/GLOBULIN RATIO 0.5 (1.0-1.7); MAGNESIUM 2.1 mg/dL (1.8-2.4); TOTAL BILIRUBIN 0.5 mg/dL (0.2-1.0); TOTAL PROTEIN 7.5 g/dL (6.4-8.2)
[2017-10-25] MEDS ORDERED: WARFARIN 6 MG TABLET. PO ONE (16:00)
[2017-10-25 16:16] LABS: BASE EXCESS ABG 7 mmol/L (-3-3); HCO3 ABG 34 mmol/L (21-28); PO2 ABG 67 mmHg (65-108); SAT O2 ABG 93 % (92-99)
[2017-10-25 16:23] LABS: FIO2 ABG 30; PCO2 ABG 61 mmHg (35-46)
[2017-10-25] MEDS: ATORVASTATIN CALCIUM 40 MG TABLET. PO SCH (19:43)
[2017-10-25] MEDS ORDERED: fentaNYL PF VIAL 100 MCG/2 ML VIAL IV PRN (20:30)
[2017-10-25] MEDS: INSULIN GLARGINE 300 UNITS/3 ML INSULN.PEN. SQ SCH (21:45)
[2017-10-26] VITALS (11 sets, daily range): BP systolic 108–129; BP diastolic 62–92
[2017-10-26] MEDS: HALOPERIDOL LACTATE 5 MG/ML VIAL. IVP PRN (00:42)
[2017-10-26 01:39] LABS: VANC TR 11.9 mcg/mL (10.0-20.0)
[2017-10-26] MEDS: VANCOMYCIN 2 GM in IV NORMAL SALINE 500ML BAG 500 ML IV SCH (02:07)
[2017-10-26] MEDS: VANCOMYCIN PER PHARMACY MC PRN (02:26)
[2017-10-26 05:09] LABS: PROTHROMBIN TIME PATIENT 29.9 SEC (11.7-14.0)
[2017-10-26 05:17] LABS: CALCIUM 8.2 mg/dL (8.5-10.1); CREATININE 1.7 mg/dL (0.7-1.3); GFR 49.3; POTASSIUM 3.7 mmol/L (3.5-5.1)
--- NOTE | 2017-10-26 06:56 | PDOC ---
PULMONARY PROGRESS NOTES Subjective on 02, used bipap for an hour, asking for pain meds constantly, has cough, sob better. Vitals Vital Signs Date Time Temp Pulse Resp B/P (MAP) Pulse Ox O2 Delivery O2 Flow Rate FiO2 10/26/17 05:14 106 129/80 (96) 98 Nasal Cannula 3.0 10/26/17 04:12 98.9 98.9 10/25/17 18:00 22 Comments ros as mentioned as above, other sys otherwise neg ROS: No Nausea General: Alert HEENT: Other (nc at perrl nose clear, shallow oropharynx. neck no lad, thyromegaly) Lungs: Crackles Cardiovascular: Other (irreg irreg) Abdomen: Soft, Non-tender, Other (no mass) Neuro Exam: Alert Extremities: Other (edema) Skin: Warm Labs Laboratory Tests Test 10/24/17 07:40 10/24/17 11:21 10/24/17 16:41 10/24/17 21:18 Glucose (Fingerstick) 307 mg/dL (70-99) 268 mg/dL (70-99) 101 mg/dL (70-99) 66 mg/dL (70-99) Test 10/25/17 00:54 10/25/17 07:34 10/25/17 11:28 10/25/17 11:55 Glucose (Fingerstick) 119 mg/dL (70-99) 203 mg/dL (70-99) 263 mg/dL (70-99) O2 Saturation 95 % (92-99) Arterial Blood pH 7.14 (7.35-7.45) Arterial Blood pCO2 at Patient Temp 134 mmHg (35-46) Arterial Blood pO2 at Patient Temp 89 mmHg (65-108) Arterial Blood HCO3 44 mmol/L (21-28) Arterial Blood Base Excess 10 mmol/L (-3-3) FiO2 52 Test 10/25/17 12:20 10/25/17 13:50 10/25/17 14:50 10/25/17 16:10 Prothrombin Time 27.0 SEC (11.7-14.0) Prothromb Time International Ratio 2.6 (0.8-1.1) Glucose (Fingerstick) 227 mg/dL (70-99) White Blood Count 7.2 x10^3/uL (4.0-11.0) Red Blood Count 3.91 x10^6/uL (4.30-5.70) Hemoglobin 12.5 g/dL (13.0-17.5) Hematocrit 38.7 % (39.0-53.0) Mean Corpuscular Volume 99 fL (79-100) Mean Corpuscular Hemoglobin 32 pg (25-35) Mean Corpuscular Hemoglobin Concent 32 g/dL (31-37) Red Cell Distribution Width 15.9 % (11.5-14.5) Platelet Count 341 x10^3/uL (140-400) Neutrophils (%) (Auto) 70 % (31-73) Lymphocytes (%) (Auto) 12 % (24-48) Monocytes (%) (Auto) 17 % (0-9) Eosinophils (%) (Auto) 1 % (0-3) Basophils (%) (Auto) 1 % (0-3) Neutrophils # (Auto) 5.0 x10^3uL (1.8-7.7) Lymphocytes # (Auto) 0.9 x10^3/uL (1.0-4.8) Monocytes # (Auto) 1.2 x10^3/uL (0.0-1.1) Eosinophils # (Auto) 0.0 x10^3/uL (0.0-0.7) Basophils # (Auto) 0.0 x10^3/uL (0.0-0.2) Sodium Level 137 mmol/L (136-145) Potassium Level 4.7 mmol/L (3.5-5.1) Chloride Level 96 mmol/L (98-107) Carbon Dioxide Level 40 mmol/L (21-32) Anion Gap 1 (6-14) Blood Urea Nitrogen 38 mg/dL (8-26) Creatinine 2.0 mg/dL (0.7-1.3) Estimated GFR (Cockcroft-Gault) 40.9 BUN/Creatinine Ratio 19 (6-20) Glucose Level 235 mg/dL (70-99) Lactic Acid Level 1.2 mmol/L (0.4-2.0) Calcium Level 8.9 mg/dL (8.5-10.1) Magnesium Level 2.1 mg/dL (1.8-2.4) Total Bilirubin 0.5 mg/dL (0.2-1.0) Aspartate Amino Transf (AST/SGOT) 16 U/L (15-37) Alanine Aminotransferase (ALT/SGPT) 15 U/L (16-63) Alkaline Phosphatase 72 U/L (46-116) Total Protein 7.5 g/dL (6.4-8.2) Albumin 2.6 g/dL (3.4-5.0) Albumin/Globulin Ratio 0.5 (1.0-1.7) Procalcitonin 0.24 ng/mL (0.00-0.10) O2 Saturation 93 % (92-99) Arterial Blood pH 7.37 (7.35-7.45) Arterial Blood pCO2 at Patient Temp 61 mmHg (35-46) Arterial Blood pO2 at Patient Temp 67 mmHg (65-108) Arterial Blood HCO3 34 mmol/L (21-28) Arterial Blood Base Excess 7 mmol/L (-3-3) FiO2 30 Test 10/25/17 21:41 10/26/17 00:35 10/26/17 04:00 Glucose (Fingerstick) 176 mg/dL (70-99) Vancomycin Level Trough 11.9 mcg/mL (10.0-20.0) Vancomycin Last Dose Date Vancomycin Last Dose Time Prothrombin Time 29.9 SEC (11.7-14.0) Prothromb Time International Ratio 2.9 (0.8-1.1) Sodium Level 135 mmol/L (136-145) Potassium Level 3.7 mmol/L (3.5-5.1) Chloride Level 97 mmol/L (98-107) Carbon Dioxide Level 35 mmol/L (21-32) Anion Gap 3 (6-14) Blood Urea Nitrogen 39 mg/dL (8-26) Creatinine 1.7 mg/dL (0.7-1.3) Estimated GFR (Cockcroft-Gault) 49.3 Glucose Level 111 mg/dL (70-99) Calcium Level 8.2 mg/dL (8.5-10.1) Laboratory Tests Test 10/25/17 07:34 10/25/17 11:28 10/25/17 11:55 10/25/17 12:20 Glucose (Fingerstick) 203 mg/dL (70-99) 263 mg/dL (70-99) O2 Saturation 95 % (92-99) Arterial Blood pH 7.14 (7.35-7.45) Arterial Blood pCO2 at Patient Temp 134 mmHg (35-46) Arterial Blood pO2 at Patient Temp 89 mmHg (65-108) Arterial Blood HCO3 44 mmol/L (21-28) Arterial Blood Base Excess 10 mmol/L (-3-3) FiO2 52 Prothrombin Time 27.0 SEC (11.7-14.0) Prothromb Time International Ratio 2.6 (0.8-1.1) Test 10/25/17 13:50 10/25/17 14:50 10/25/17 16:10 10/25/17 21:41 Glucose (Fingerstick) 227 mg/dL (70-99) 176 mg/dL (70-99) White Blood Count 7.2 x10^3/uL (4.0-11.0) Red Blood Count 3.91 x10^6/uL (4.30-5.70) Hemoglobin 12.5 g/dL (13.0-17.5) Hematocrit 38.7 % (39.0-53.0) Mean Corpuscular Volume 99 fL (79-100) Mean Corpuscular Hemoglobin 32 pg (25-35) Mean Corpuscular Hemoglobin Concent 32 g/dL (31-37) Red Cell Distribution Width 15.9 % (11.5-14.5) Platelet Count 341 x10^3/uL (140-400) Neutrophils (%) (Auto) 70 % (31-73) Lymphocytes (%) (Auto) 12 % (24-48) Monocytes (%) (Auto) 17 % (0-9) Eosinophils (%) (Auto) 1 % (0-3) Basophils (%) (Auto) 1 % (0-3) Neutrophils # (Auto) 5.0 x10^3uL (1.8-7.7) Lymphocytes # (Auto) 0.9 x10^3/uL (1.0-4.8) Monocytes # (Auto) 1.2 x10^3/uL (0.0-1.1) Eosinophils # (Auto) 0.0 x10^3/uL (0.0-0.7) Basophils # (Auto) 0.0 x10^3/uL (0.0-0.2) Sodium Level 137 mmol/L (136-145) Potassium Level 4.7 mmol/L (3.5-5.1) Chloride Level 96 mmol/L (98-107) Carbon Dioxide Level 40 mmol/L (21-32) Anion Gap 1 (6-14) Blood Urea Nitrogen 38 mg/dL (8-26) Creatinine 2.0 mg/dL (0.7-1.3) Estimated GFR (Cockcroft-Gault) 40.9 BUN/Creatinine Ratio 19 (6-20) Glucose Level 235 mg/dL (70-99) Lactic Acid Level 1.2 mmol/L (0.4-2.0) Calcium Level 8.9 mg/dL (8.5-10.1) Magnesium Level 2.1 mg/dL (1.8-2.4) Total Bilirubin 0.5 mg/dL (0.2-1.0) Aspartate Amino Transf (AST/SGOT) 16 U/L (15-37) Alanine Aminotransferase (ALT/SGPT) 15 U/L (16-63) Alkaline Phosphatase 72 U/L (46-116) Total Protein 7.5 g/dL (6.4-8.2) Albumin 2.6 g/dL (3.4-5.0) Albumin/Globulin Ratio 0.5 (1.0-1.7) Procalcitonin 0.24 ng/mL (0.00-0.10) O2 Saturation 93 % (92-99) Arterial Blood pH 7.37 (7.35-7.45) Arterial Blood pCO2 at Patient Temp 61 mmHg (35-46) Arterial Blood pO2 at Patient Temp 67 mmHg (65-108) Arterial Blood HCO3 34 mmol/L (21-28) Arterial Blood Base Excess 7 mmol/L (-3-3) FiO2 30 Test 10/26/17 00:35 10/26/17 04:00 Vancomycin Level Trough 11.9 mcg/mL (10.0-20.0) Vancomycin Last Dose Date Vancomycin Last Dose Time Prothrombin Time 29.9 SEC (11.7-14.0) Prothromb Time International Ratio 2.9 (0.8-1.1) Sodium Level 135 mmol/L (136-145) Potassium Level 3.7 mmol/L (3.5-5.1) Chloride Level 97 mmol/L (98-107) Carbon Dioxide Level 35 mmol/L (21-32) Anion Gap 3 (6-14) Blood Urea Nitrogen 39 mg/dL (8-26) Creatinine 1.7 mg/dL (0.7-1.3) Estimated GFR (Cockcroft-Gault) 49.3 Glucose Level 111 mg/dL (70-99) Calcium Level 8.2 mg/dL (8.5-10.1) Medications Active Scripts Medications Dose Route/Sig Max Daily Dose Days Date Category Hydrochlorothiazide Tablet (Hydrochlorothiazide) 25 Mg Tablet 1 Tab PO DAILY 10/24/17 Reported Percocet 10-325 Mg Tablet (Oxycodone/Acetaminophen) 1 Each Tablet 2 Tab PO QID PRN 08/30/17 Reported Diltiazem 24HR Cd (Diltiazem Hcl) 120 Mg Cap.er.24h 240 Mg PO DAILY 08/30/17 Reported Humalog Kwikpen (Insulin Lispro) 200 Unit/1 Ml Insuln.pen 25 Unit SQ TIDWMEALS 08/30/17 Reported Levemir (Insulin Detemir) 100 Unit/1 Ml Vial 50 Unit SQ QHS 08/30/17 Reported Metoprolol Tartrate 50 Mg Tablet 1 Tab PO BID 08/30/17 Reported Bumetanide 2 Mg Tablet 1 Tab PO TID 08/30/17 Reported Coumadin (Warfarin Sodium) 10 Mg Tablet 1 Tab PO QMWF 08/30/17 Reported Coumadin (Warfarin Sodium) 10 Mg Tablet 1 Tab PO QSU 08/30/17 Reported Warfarin Sodium 3 Mg Tablet 1 Tab PO QTUTHSA 08/30/17 Reported Atorvastatin Calcium 40 Mg Tablet 1 Tab PO QHS 08/30/17 Reported Aspirin Ec (Aspirin) 81 Mg Tablet.dr 1 Tab PO DAILY 08/30/17 Reported Potassium Chloride 20 Meq Tablet.er 20 Meq PO TID 08/30/17 Reported Losartan Potassium 50 Mg Tablet 50 Mg PO DAILY 08/30/17 Reported Zofran Odt (Ondansetron) 4 Mg Tab.rapdis 1 Tab SL PRN Q8HRS PRN 04/09/17 Rx Combivent Respimat Inhal (Ipratropium/Albuterol Sulfate) 4 Gm Aer.w.adap 2 Inh IH QID 06/27/16 Reported Albuterol Sulfate Conc Neb Soln (Albuterol Sulfate) 2.5 Mg/0.5 Ml Vial.neb 1 Vial NEB PRN Q6HRS PRN 06/27/16 Reported Comments cxr reviewed, 1. Mild congestive changes. 2. Mild left lung base airspace opacity could be atelectasis or infiltrate or due to overlapping soft tissue. Impression . IMPRESSION: 1. Jjymy-zt-bmagvkr hypercapnic respiratory failure, contributed by narcotics and also related to underlying obesity hypoventilation syndrome. 2. chronic obstructive pulmonary disease. 3. Lower extremity edema with erythema, being treated for cellulitis. 4. Cocaine abuse. 5. Chronic anticoagulation with Coumadin. 6. obesity, ? eliana/ohs 7. afib 8. chf 9. ckd Plan . RECOMMENDATIONS: 1. fi02 titration, bipap prn, setting reviewed 2. avoid oversedation. 3. elevate hob 4. Antibiotics per Infectious Diseases. 5. Anticoagulation per PCP. monitor for bleeding 6. Continue bronchodilators. 7. add protonix for stress ulcer prophylaxis 8. psg as out pt 9. keep I<O, bumex, monitor k, cr Discussed with PT, RN and RT. MARGO COBOS MD Oct 26, 2017 06:56
[2017-10-26] MEDS: INSULIN LISPRO 300 UNITS/3 ML INSULN.PEN. SQ SCH ×6 (08:00→16:53)
[2017-10-26] MEDS: LACTOBACILLUS RHAMNOSUS GG 1 CAPSULE. PO SCH ×2 (08:07→21:09)
[2017-10-26] MEDS: ASPIRIN ENTERIC COATED 81 MG TABLET.DR. PO SCH (08:07)
[2017-10-26] MEDS: BUMETANIDE 1 MG TABLET. PO SCH ×3 (08:07→16:46)
[2017-10-26] MEDS: hydroCHLOROthiazide 25 MG TABLET PO SCH (08:08)
[2017-10-26] MEDS: METOPROLOL TART IMMED RELEASE 50 MG TABLET. PO SCH ×2 (08:09→21:09)
[2017-10-26] MEDS: POTASSIUM CHLORIDE 20 MEQ TABLET.ER. PO SCH ×3 (08:09→16:46)
[2017-10-26] MEDS: LOSARTAN POTASSIUM 50 MG TABLET. PO SCH (08:09)
[2017-10-26] MEDS: IPRATRPIUM/ALBUTEROL 0.5/2.5MG 3 ML NEBU. NEB SCH ×4 (08:56→19:23)
[2017-10-26] MEDS: ALPRAZolam 0.25 MG TABLET PO PRN ×2 (11:51→22:14)
--- NOTE | 2017-10-26 12:11 | PDOC ---
Renal-Progress Notes Subjective Notes Notes LEFT LE SKIN DISCOLORATION History of Present Illness Hx of present illness BETTER Vitals Vitals Vital Signs Date Time Temp Pulse Resp B/P (MAP) Pulse Ox O2 Delivery O2 Flow Rate FiO2 10/26/17 11:40 3.0 10/26/17 10:25 98.0 105 20 122/80 (94) 93 Nasal Cannula 98.0 Weight Weight [ ] I.O. Intake and Output Intake and Output 10/26/17 07:00 Intake Total 890 ml Output Total 850 ml Balance 40 ml Intake Oral 890 ml Output Urine Total 850 ml Labs Labs Laboratory Tests Test 10/25/17 12:20 10/25/17 13:50 10/25/17 14:50 10/25/17 16:10 Prothrombin Time 27.0 SEC (11.7-14.0) Prothromb Time International Ratio 2.6 (0.8-1.1) Glucose (Fingerstick) 227 mg/dL (70-99) White Blood Count 7.2 x10^3/uL (4.0-11.0) Red Blood Count 3.91 x10^6/uL (4.30-5.70) Hemoglobin 12.5 g/dL (13.0-17.5) Hematocrit 38.7 % (39.0-53.0) Mean Corpuscular Volume 99 fL (79-100) Mean Corpuscular Hemoglobin 32 pg (25-35) Mean Corpuscular Hemoglobin Concent 32 g/dL (31-37) Red Cell Distribution Width 15.9 % (11.5-14.5) Platelet Count 341 x10^3/uL (140-400) Neutrophils (%) (Auto) 70 % (31-73) Lymphocytes (%) (Auto) 12 % (24-48) Monocytes (%) (Auto) 17 % (0-9) Eosinophils (%) (Auto) 1 % (0-3) Basophils (%) (Auto) 1 % (0-3) Neutrophils # (Auto) 5.0 x10^3uL (1.8-7.7) Lymphocytes # (Auto) 0.9 x10^3/uL (1.0-4.8) Monocytes # (Auto) 1.2 x10^3/uL (0.0-1.1) Eosinophils # (Auto) 0.0 x10^3/uL (0.0-0.7) Basophils # (Auto) 0.0 x10^3/uL (0.0-0.2) Sodium Level 137 mmol/L (136-145) Potassium Level 4.7 mmol/L (3.5-5.1) Chloride Level 96 mmol/L (98-107) Carbon Dioxide Level 40 mmol/L (21-32) Anion Gap 1 (6-14) Blood Urea Nitrogen 38 mg/dL (8-26) Creatinine 2.0 mg/dL (0.7-1.3) Estimated GFR (Cockcroft-Gault) 40.9 BUN/Creatinine Ratio 19 (6-20) Glucose Level 235 mg/dL (70-99) Lactic Acid Level 1.2 mmol/L (0.4-2.0) Calcium Level 8.9 mg/dL (8.5-10.1) Magnesium Level 2.1 mg/dL (1.8-2.4) Total Bilirubin 0.5 mg/dL (0.2-1.0) Aspartate Amino Transf (AST/SGOT) 16 U/L (15-37) Alanine Aminotransferase (ALT/SGPT) 15 U/L (16-63) Alkaline Phosphatase 72 U/L (46-116) Total Protein 7.5 g/dL (6.4-8.2) Albumin 2.6 g/dL (3.4-5.0) Albumin/Globulin Ratio 0.5 (1.0-1.7) Procalcitonin 0.24 ng/mL (0.00-0.10) O2 Saturation 93 % (92-99) Arterial Blood pH 7.37 (7.35-7.45) Arterial Blood pCO2 at Patient Temp 61 mmHg (35-46) Arterial Blood pO2 at Patient Temp 67 mmHg (65-108) Arterial Blood HCO3 34 mmol/L (21-28) Arterial Blood Base Excess 7 mmol/L (-3-3) FiO2 30 Test 10/25/17 21:41 10/26/17 00:35 10/26/17 04:00 10/26/17 08:05 Glucose (Fingerstick) 176 mg/dL (70-99) 101 mg/dL (70-99) Vancomycin Level Trough 11.9 mcg/mL (10.0-20.0) Vancomycin Last Dose Date Vancomycin Last Dose Time Erythrocyte Sedimentation Rate 35 (0-15) Prothrombin Time 29.9 SEC (11.7-14.0) Prothromb Time International Ratio 2.9 (0.8-1.1) Sodium Level 135 mmol/L (136-145) Potassium Level 3.7 mmol/L (3.5-5.1) Chloride Level 97 mmol/L (98-107) Carbon Dioxide Level 35 mmol/L (21-32) Anion Gap 3 (6-14) Blood Urea Nitrogen 39 mg/dL (8-26) Creatinine 1.7 mg/dL (0.7-1.3) Estimated GFR (Cockcroft-Gault) 49.3 Glucose Level 111 mg/dL (70-99) Calcium Level 8.2 mg/dL (8.5-10.1) Micro Micro Microbiology 10/24/17 Blood Culture - Preliminary, Resulted NO GROWTH AFTER 2 DAYS Review of Systems Constitutional: yes: weakness, alert Ears/Nose/Throat: Yes: no symptom reported Eyes: Yes: no symptom reported Pulmonary: Yes dyspnea Cardiovascular: Yes no symptom reported Gastrointestional: Yes: no symptom reported Genitourinary: Yes: no symptom reported Musculoskeletal: Yes: no symptom reported Psychiatric/Neurological: Yes: no symptom reported Endocrine: Yes: no symptom reported Physical Exam General Appearance: no apparent distress Skin: warm Respiratory: decreased breath sounds Heart: S1S2 Abdomen: soft, bowel sounds present Extremities: edema Neurology: alert, oriented Musculoskeletal: low back pain Assessment Assessment IMP JONAS-IMPROVING WITH CR OF 1.7-NO CKD COPD OBESITY ACUTE ON CHRONIC RESP FAILURE SUSPECT RIGHT HEART FAILURE LE EMEMA AND POSSIBLE L LE CELLULITIS DM II PLAN ENC PO NO IVF'S ANTIBIOTICS CONT ARB AND DIURETICS FERNANDO LOPEZ MD Oct 26, 2017 12:11
--- NOTE | 2017-10-26 13:38 | RAD ---
Left lower extremity venous ultrasound, 10/26/2017 : History: Left knee pain and swelling after a fall Duplex evaluation including grayscale, color flow and spectral Doppler analysis was performed. The femoral and popliteal veins show no filling defects to suggest DVT. The visualized calf veins are unremarkable. Note is made of a 5.8 x 4.2 x 2.4 cm cystic structure in the popliteal fossa compatible with a Rand's cyst. IMPRESSION: 1. There is no sonographic evidence of deep vein thrombosis in the left lower extremity. 2. Small popliteal cyst. Electronically signed by: Hernan Corcoran MD (10/26/2017 1:35 PM) [facility]
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
[2017-10-26] MEDS ORDERED: WARFARIN 5 MG TABLET. PO ONE (16:00)
[2017-10-26] MEDS ORDERED: INSULIN GLARGINE 300 UNITS/3 ML INSULN.PEN. SQ SCH (21:00)
[2017-10-26] MEDS: ATORVASTATIN CALCIUM 40 MG TABLET. PO SCH (21:09)
[2017-10-27] MEDS: VANCOMYCIN 2 GM in IV NORMAL SALINE 500ML BAG 500 ML IV SCH (01:13)
[2017-10-27 03:00] VITALS: BP 122/87
[2017-10-27] MEDS: IPRATRPIUM/ALBUTEROL 0.5/2.5MG 3 ML NEBU. NEB SCH ×4 (07:16→20:00)
[2017-10-27 07:23] VITALS: BP 112/85
[2017-10-27] MEDS: BUMETANIDE 1 MG TABLET. PO SCH ×3 (08:16→17:35)
[2017-10-27] MEDS: POTASSIUM CHLORIDE 20 MEQ TABLET.ER. PO SCH ×3 (08:16→17:34)
[2017-10-27] MEDS: INSULIN LISPRO 300 UNITS/3 ML INSULN.PEN. SQ SCH ×6 (08:19→17:00)
[2017-10-27] MEDS: ALPRAZolam 0.25 MG TABLET PO PRN (08:20)
[2017-10-27] MEDS: LOSARTAN POTASSIUM 50 MG TABLET. PO SCH (08:30)
[2017-10-27] MEDS: ASPIRIN ENTERIC COATED 81 MG TABLET.DR. PO SCH (08:30)
[2017-10-27] MEDS: hydroCHLOROthiazide 25 MG TABLET PO SCH (08:30)
[2017-10-27] MEDS: METOPROLOL TART IMMED RELEASE 50 MG TABLET. PO SCH ×2 (08:30→21:35)
[2017-10-27] MEDS: LACTOBACILLUS RHAMNOSUS GG 1 CAPSULE. PO SCH ×2 (08:30→21:34)
--- NOTE | 2017-10-27 09:25 | PDOC ---
PULMONARY PROGRESS NOTES Subjective on 02, didnt use bipap, sob better, has occ cough, has foot pain Vitals Vital Signs Date Time Temp Pulse Resp B/P (MAP) Pulse Ox O2 Delivery O2 Flow Rate FiO2 10/27/17 08:30 115 112/85 10/27/17 07:23 98.3 18 98 Nasal Cannula 5.0 98.3 Comments ros as mentioned as above, other sys otherwise neg ROS: No Nausea General: Alert HEENT: Other (nc at perrl nose clear, shallow oropharynx. neck no lad, thyromegaly) Lungs: Other (bl diminished bs) Cardiovascular: Other (irreg irreg) Abdomen: Soft, Non-tender, Other (no mass) Neuro Exam: Alert Extremities: Other (edema) Skin: Warm Labs Laboratory Tests Test 10/25/17 11:28 10/25/17 11:55 10/25/17 12:20 10/25/17 13:50 Glucose (Fingerstick) 263 mg/dL (70-99) 227 mg/dL (70-99) O2 Saturation 95 % (92-99) Arterial Blood pH 7.14 (7.35-7.45) Arterial Blood pCO2 at Patient Temp 134 mmHg (35-46) Arterial Blood pO2 at Patient Temp 89 mmHg (65-108) Arterial Blood HCO3 44 mmol/L (21-28) Arterial Blood Base Excess 10 mmol/L (-3-3) FiO2 52 Prothrombin Time 27.0 SEC (11.7-14.0) Prothromb Time International Ratio 2.6 (0.8-1.1) Test 10/25/17 14:50 10/25/17 16:10 10/25/17 21:41 10/26/17 00:35 White Blood Count 7.2 x10^3/uL (4.0-11.0) Red Blood Count 3.91 x10^6/uL (4.30-5.70) Hemoglobin 12.5 g/dL (13.0-17.5) Hematocrit 38.7 % (39.0-53.0) Mean Corpuscular Volume 99 fL (79-100) Mean Corpuscular Hemoglobin 32 pg (25-35) Mean Corpuscular Hemoglobin Concent 32 g/dL (31-37) Red Cell Distribution Width 15.9 % (11.5-14.5) Platelet Count 341 x10^3/uL (140-400) Neutrophils (%) (Auto) 70 % (31-73) Lymphocytes (%) (Auto) 12 % (24-48) Monocytes (%) (Auto) 17 % (0-9) Eosinophils (%) (Auto) 1 % (0-3) Basophils (%) (Auto) 1 % (0-3) Neutrophils # (Auto) 5.0 x10^3uL (1.8-7.7) Lymphocytes # (Auto) 0.9 x10^3/uL (1.0-4.8) Monocytes # (Auto) 1.2 x10^3/uL (0.0-1.1) Eosinophils # (Auto) 0.0 x10^3/uL (0.0-0.7) Basophils # (Auto) 0.0 x10^3/uL (0.0-0.2) Sodium Level 137 mmol/L (136-145) Potassium Level 4.7 mmol/L (3.5-5.1) Chloride Level 96 mmol/L (98-107) Carbon Dioxide Level 40 mmol/L (21-32) Anion Gap 1 (6-14) Blood Urea Nitrogen 38 mg/dL (8-26) Creatinine 2.0 mg/dL (0.7-1.3) Estimated GFR (Cockcroft-Gault) 40.9 BUN/Creatinine Ratio 19 (6-20) Glucose Level 235 mg/dL (70-99) Lactic Acid Level 1.2 mmol/L (0.4-2.0) Calcium Level 8.9 mg/dL (8.5-10.1) Magnesium Level 2.1 mg/dL (1.8-2.4) Total Bilirubin 0.5 mg/dL (0.2-1.0) Aspartate Amino Transf (AST/SGOT) 16 U/L (15-37) Alanine Aminotransferase (ALT/SGPT) 15 U/L (16-63) Alkaline Phosphatase 72 U/L (46-116) Total Protein 7.5 g/dL (6.4-8.2) Albumin 2.6 g/dL (3.4-5.0) Albumin/Globulin Ratio 0.5 (1.0-1.7) Procalcitonin 0.24 ng/mL (0.00-0.10) O2 Saturation 93 % (92-99) Arterial Blood pH 7.37 (7.35-7.45) Arterial Blood pCO2 at Patient Temp 61 mmHg (35-46) Arterial Blood pO2 at Patient Temp 67 mmHg (65-108) Arterial Blood HCO3 34 mmol/L (21-28) Arterial Blood Base Excess 7 mmol/L (-3-3) FiO2 30 Glucose (Fingerstick) 176 mg/dL (70-99) Vancomycin Level Trough 11.9 mcg/mL (10.0-20.0) Vancomycin Last Dose Date Vancomycin Last Dose Time Test 10/26/17 04:00 10/26/17 08:05 10/26/17 12:52 10/26/17 16:45 Erythrocyte Sedimentation Rate 35 (0-15) Prothrombin Time 29.9 SEC (11.7-14.0) Prothromb Time International Ratio 2.9 (0.8-1.1) Sodium Level 135 mmol/L (136-145) Potassium Level 3.7 mmol/L (3.5-5.1) Chloride Level 97 mmol/L (98-107) Carbon Dioxide Level 35 mmol/L (21-32) Anion Gap 3 (6-14) Blood Urea Nitrogen 39 mg/dL (8-26) Creatinine 1.7 mg/dL (0.7-1.3) Estimated GFR (Cockcroft-Gault) 49.3 Glucose Level 111 mg/dL (70-99) Calcium Level 8.2 mg/dL (8.5-10.1) Glucose (Fingerstick) 101 mg/dL (70-99) 261 mg/dL (70-99) 346 mg/dL (70-99) Test 10/26/17 21:02 10/27/17 07:25 Glucose (Fingerstick) 247 mg/dL (70-99) 200 mg/dL (70-99) Laboratory Tests Test 10/26/17 12:52 10/26/17 16:45 10/26/17 21:02 10/27/17 07:25 Glucose (Fingerstick) 261 mg/dL (70-99) 346 mg/dL (70-99) 247 mg/dL (70-99) 200 mg/dL (70-99) Medications Active Scripts Medications Dose Route/Sig Max Daily Dose Days Date Category Hydrochlorothiazide Tablet (Hydrochlorothiazide) 25 Mg Tablet 1 Tab PO DAILY 10/24/17 Reported Percocet 10-325 Mg Tablet (Oxycodone/Acetaminophen) 1 Each Tablet 2 Tab PO QID PRN 08/30/17 Reported Diltiazem 24HR Cd (Diltiazem Hcl) 120 Mg Cap.er.24h 240 Mg PO DAILY 08/30/17 Reported Humalog Kwikpen (Insulin Lispro) 200 Unit/1 Ml Insuln.pen 25 Unit SQ TIDWMEALS 08/30/17 Reported Levemir (Insulin Detemir) 100 Unit/1 Ml Vial 50 Unit SQ QHS 08/30/17 Reported Metoprolol Tartrate 50 Mg Tablet 1 Tab PO BID 08/30/17 Reported Bumetanide 2 Mg Tablet 1 Tab PO TID 08/30/17 Reported Coumadin (Warfarin Sodium) 10 Mg Tablet 1 Tab PO QMWF 08/30/17 Reported Coumadin (Warfarin Sodium) 10 Mg Tablet 1 Tab PO QSU 08/30/17 Reported Warfarin Sodium 3 Mg Tablet 1 Tab PO QTUTHSA 08/30/17 Reported Atorvastatin Calcium 40 Mg Tablet 1 Tab PO QHS 08/30/17 Reported Aspirin Ec (Aspirin) 81 Mg Tablet.dr 1 Tab PO DAILY 08/30/17 Reported Potassium Chloride 20 Meq Tablet.er 20 Meq PO TID 08/30/17 Reported Losartan Potassium 50 Mg Tablet 50 Mg PO DAILY 08/30/17 Reported Zofran Odt (Ondansetron) 4 Mg Tab.rapdis 1 Tab SL PRN Q8HRS PRN 04/09/17 Rx Combivent Respimat Inhal (Ipratropium/Albuterol Sulfate) 4 Gm Aer.w.adap 2 Inh IH QID 06/27/16 Reported Albuterol Sulfate Conc Neb Soln (Albuterol Sulfate) 2.5 Mg/0.5 Ml Vial.neb 1 Vial NEB PRN Q6HRS PRN 06/27/16 Reported Comments cxr reviewed, 1. Mild congestive changes. 2. Mild left lung base airspace opacity could be atelectasis or infiltrate or due to overlapping soft tissue. Impression . IMPRESSION: 1. Lwfoa-rh-[id number] hypercapnic respiratory failure, contributed by narcotics and also related to underlying obesity hypoventilation syndrome. 2. chronic obstructive pulmonary disease. 3. Lower extremity edema with erythema, being treated for cellulitis. 4. Cocaine abuse. 5. Chronic anticoagulation with Coumadin. 6. obesity, ? eliana/ohs 7. afib 8. chf 9. ckd Plan . RECOMMENDATIONS: 1. fi02 titration, bipap prn, setting reviewed 2. avoid oversedation. 3. elevate hob 4. Antibiotics per Infectious Diseases. 5. Anticoagulation per PCP. monitor for bleeding 6. Continue bronchodilators. 7. protonix for stress ulcer prophylaxis 8. psg as out pt, eliana the importance of eliana diagnosis and tx discussed 9. keep I<O, bumex, monitor k, cr Discussed with PT, RN and RT. MARGO COBOS MD Oct 27, 2017 09:25
[2017-10-27 10:57] LABS: CALCIUM 8.9 mg/dL (8.5-10.1); CREATININE 1.2 mg/dL (0.7-1.3); GFR 73.8; POTASSIUM 3.6 mmol/L (3.5-5.1)
[2017-10-27 11:00] VITALS: BP 134/92
[2017-10-27 11:08] LABS: BASO % 1 % (0-3); EOS # 0.2 x10^3/uL (0.0-0.7); EOS % 3 % (0-3); HEMATOCRIT 38.3 % (39.0-53.0); HEMOGLOBIN 12.5 g/dL (13.0-17.5); LYMPH # 1.1 x10^3/uL (1.0-4.8); LYMPH % 14 % (24-48); MEAN CORPUSCULAR HEMOGLOBIN 32 pg (25-35); MEAN CORPUSCULAR HGB CONC 33 g/dL (31-37); MEAN CORPUSCULAR VOLUME 98 fL (79-100); MONO # 1.1 x10^3/uL (0.0-1.1); MONO % 14 % (0-9); NEUT # 5.4 x10^3uL (1.8-7.7); NEUT % 69 % (31-73); PLATELET COUNT 386 x10^3/uL (140-400); RED BLOOD COUNT 3.91 x10^6/uL (4.30-5.70); RED CELL DISTRIBUTION WIDTH 16.1 % (11.5-14.5); WHITE BLOOD COUNT 7.8 x10^3/uL (4.0-11.0)
--- NOTE | 2017-10-27 11:08 | PDOC ---
Renal-Progress Notes Subjective Notes Notes NONE, SITTING UP History of Present Illness Hx of present illness STABLE Vitals Vitals Vital Signs Date Time Temp Pulse Resp B/P (MAP) Pulse Ox O2 Delivery O2 Flow Rate FiO2 10/27/17 08:30 115 112/85 10/27/17 08:10 Nasal Cannula 3.0 10/27/17 07:23 98.3 18 98 98.3 Weight Weight [ ] I.O. Intake and Output Intake and Output 10/27/17 07:00 Intake Total 200 ml Output Total 2025 ml Balance -1825 ml Intake Oral 200 ml Output Urine Total 2025 ml # Voids 1 Labs Labs Laboratory Tests Test 10/26/17 12:52 10/26/17 16:45 10/26/17 21:02 10/27/17 07:25 Glucose (Fingerstick) 261 mg/dL (70-99) 346 mg/dL (70-99) 247 mg/dL (70-99) 200 mg/dL (70-99) Micro Micro Microbiology 10/24/17 Blood Culture - Preliminary, Resulted NO GROWTH AFTER 3 DAYS Review of Systems Constitutional: yes: weakness, alert Ears/Nose/Throat: Yes: no symptom reported Eyes: Yes: no symptom reported Pulmonary: Yes dyspnea Cardiovascular: Yes no symptom reported Gastrointestional: Yes: no symptom reported Genitourinary: Yes: no symptom reported Musculoskeletal: Yes: no symptom reported Psychiatric/Neurological: Yes: no symptom reported Endocrine: Yes: no symptom reported Physical Exam General Appearance: no apparent distress Skin: warm Respiratory: decreased breath sounds Heart: S1S2 Abdomen: soft, bowel sounds present Extremities: edema Neurology: alert, oriented Musculoskeletal: low back pain Assessment Assessment IMP JONAS-IMPROVING WITH CR OF 1.7-NO CKD COPD OBESITY ACUTE ON CHRONIC RESP FAILURE SUSPECT RIGHT HEART FAILURE LE EMEMA AND POSSIBLE L LE CELLULITIS DM II PLAN ANTIBIOTICS CONT ARB AND DIURETICS FERNANDO LOPEZ MD Oct 27, 2017 11:08
[2017-10-27] MEDS: VANCOMYCIN PER PHARMACY MC PRN ×2 (11:13→11:14)
[2017-10-27 11:20] LABS: PROTHROMBIN TIME PATIENT 19.3 SEC (11.7-14.0)
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
[2017-10-27 15:30] VITALS: BP 120/77
[2017-10-27] MEDS ORDERED: WARFARIN 6 MG TABLET. PO ONE (16:00)
[2017-10-27 19:00] VITALS: BP 125/80
[2017-10-27] MEDS: ATORVASTATIN CALCIUM 40 MG TABLET. PO SCH (21:34)
[2017-10-27] MEDS: INSULIN GLARGINE 300 UNITS/3 ML INSULN.PEN. SQ SCH (21:40)
[2017-10-27 22:58] VITALS: BP 109/70
[2017-10-28] MEDS: VANCOMYCIN 2 GM in IV NORMAL SALINE 500ML BAG 500 ML IV SCH (00:45)
[2017-10-28 03:00] VITALS: BP 115/74
[2017-10-28 04:45] LABS: CALCIUM 8.8 mg/dL (8.5-10.1); CREATININE 1.2 mg/dL (0.7-1.3); GFR 73.8
[2017-10-28 05:07] LABS: PROTHROMBIN TIME PATIENT 16.9 SEC (11.7-14.0)
[2017-10-28 07:00] VITALS: BP 120/88
[2017-10-28] MEDS: IPRATRPIUM/ALBUTEROL 0.5/2.5MG 3 ML NEBU. NEB SCH ×4 (07:56→19:34)
[2017-10-28] MEDS ORDERED: DEXTROSE 50% 25 GM / 50ML DISP.SYRIN. IV PRN (08:00)
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
[2017-10-28] MEDS: LACTOBACILLUS RHAMNOSUS GG 1 CAPSULE. PO SCH ×2 (09:37→20:38)
[2017-10-28] MEDS: hydroCHLOROthiazide 25 MG TABLET PO SCH (09:37)
[2017-10-28] MEDS: ALPRAZolam 0.25 MG TABLET PO PRN ×2 (09:37→17:27)
[2017-10-28] MEDS: METOPROLOL TART IMMED RELEASE 50 MG TABLET. PO SCH ×2 (09:37→20:39)
[2017-10-28] MEDS: BUMETANIDE 1 MG TABLET. PO SCH ×3 (09:37→17:27)
[2017-10-28] MEDS: LOSARTAN POTASSIUM 50 MG TABLET. PO SCH (09:38)
[2017-10-28] MEDS: ASPIRIN ENTERIC COATED 81 MG TABLET.DR. PO SCH (09:38)
[2017-10-28] MEDS: POTASSIUM CHLORIDE 20 MEQ TABLET.ER. PO SCH ×3 (09:38→17:27)
[2017-10-28] MEDS: INSULIN LISPRO 300 UNITS/3 ML INSULN.PEN. SQ SCH ×6 (09:45→17:38)
[2017-10-28 11:00] VITALS: BP 132/98
[2017-10-28] MEDS: VANCOMYCIN PER PHARMACY MC PRN (11:25)
--- NOTE | 2017-10-28 12:23 | RAD ---
EXAM: CT of the left foot without IV contrast. CLINICAL HISTORY: SWOLLEN AND PAINFUL LEFT ANKLE, TRACKING REDNESS. COMPARISON: None available. TECHNIQUE: CT of the left foot and ankle was performed without IV contrast. Axial coronal and sagittal reformatted images were generated. FINDINGS: There is diffuse soft tissue swelling about the left foot and ankle most prominent overlying the midfoot. No definite associated loculated fluid collection is identified. No foci of subcutaneous or deep fascial gas is noted. There is no evidence for acute fracture or dislocation. Diffusely decreased bone mineral density is seen. No definite erosive or destructive changes are seen or periostitis to suggest osteomyelitis. A small joint body is seen at the anterolateral aspect of the ankle joint. Multifocal degenerative changes are seen, most prominent within the mid foot at the naviculocuneiform and tarsometatarsal joints with subchondral cystic change, joint space narrowing and associated osteophytes. Ankle joint degenerative changes are also seen with subchondral cystic change at the medial talar dome. Posterior subtalar joint degenerative cystic changes are also noted. The peroneal tendons are mildly laterally subluxed although constrained posteriorly by a prominent hooked osteophyte arising and extending posterior from the lateral malleolus along the peroneal retinaculum. Atherosclerotic vascular calcifications are seen. Fatty atrophy of the intrinsic muscles of the left foot are seen. IMPRESSION: 1. Diffuse soft tissue swelling about the left foot and ankle without associated loculated fluid collection 2. No CT evidence for osteomyelitis. 3. Multifocal degenerative changes as above 4. Mild lateral subluxation of the peroneal tendons, constrained by a prominent hooked osteophyte arising and extending posterior from the lateral malleolus along the peroneal retinaculum. PQRS compliance Statement One or more of the following individualized dose reduction techniques were utilized for this study: 1. Automated exposure control 2. Adjustment of the mA and/or kV according to patient size 3. Use of iterative reconstruction technique Electronically signed by: Christopher Funk MD (10/28/2017 12:20 PM) [facility]
--- NOTE | 2017-10-28 12:58 | PDOC ---
Renal-Progress Notes Subjective Notes Notes NONE History of Present Illness Hx of present illness STABLE Vitals Vitals Vital Signs Date Time Temp Pulse Resp B/P (MAP) Pulse Ox O2 Delivery O2 Flow Rate FiO2 10/28/17 11:32 95 Nasal Cannula 3.0 10/28/17 09:38 113 120/88 10/28/17 07:00 97.6 18 97.6 Weight Weight [ ] I.O. Intake and Output Intake and Output 10/28/17 07:00 Output Total 1700 ml Balance -1700 ml Output Urine Total 1700 ml Labs Labs Laboratory Tests Test 10/27/17 16:55 10/27/17 17:49 10/27/17 19:41 10/28/17 03:25 Glucose (Fingerstick) 56 mg/dL (70-99) 113 mg/dL (70-99) 197 mg/dL (70-99) Prothrombin Time 16.9 SEC (11.7-14.0) Prothromb Time International Ratio 1.4 (0.8-1.1) Sodium Level 135 mmol/L (136-145) Potassium Level 4.0 mmol/L (3.5-5.1) Chloride Level 97 mmol/L (98-107) Carbon Dioxide Level 40 mmol/L (21-32) Anion Gap -2 (6-14) Blood Urea Nitrogen 27 mg/dL (8-26) Creatinine 1.2 mg/dL (0.7-1.3) Estimated GFR (Cockcroft-Gault) 73.8 Glucose Level 345 mg/dL (70-99) Calcium Level 8.8 mg/dL (8.5-10.1) Test 10/28/17 07:51 10/28/17 11:48 Glucose (Fingerstick) 230 mg/dL (70-99) 166 mg/dL (70-99) Micro Micro Microbiology 10/24/17 Blood Culture - Preliminary, Resulted NO GROWTH AFTER 4 DAYS Review of Systems Constitutional: yes: weakness, alert Ears/Nose/Throat: Yes: no symptom reported Eyes: Yes: no symptom reported Pulmonary: Yes dyspnea Cardiovascular: Yes no symptom reported Gastrointestional: Yes: no symptom reported Genitourinary: Yes: no symptom reported Musculoskeletal: Yes: no symptom reported Psychiatric/Neurological: Yes: no symptom reported Endocrine: Yes: no symptom reported Physical Exam General Appearance: no apparent distress Skin: warm Respiratory: decreased breath sounds Heart: S1S2 Abdomen: soft, bowel sounds present Extremities: edema Neurology: alert, oriented Musculoskeletal: low back pain Assessment Assessment IMP JONAS-RESOLVED WITH CR OF 1.2 COPD OBESITY ACUTE ON CHRONIC RESP FAILURE SUSPECT RIGHT HEART FAILURE LE EMEMA AND POSSIBLE L LE CELLULITIS DM II 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
--- NOTE | 2017-10-28 13:09 | PDOC ---
PULMONARY PROGRESS NOTES Subjective on 02, no soa Vitals Vital Signs Date Time Temp Pulse Resp B/P (MAP) Pulse Ox O2 Delivery O2 Flow Rate FiO2 10/28/17 11:32 95 Nasal Cannula 3.0 10/28/17 09:38 113 120/88 10/28/17 07:00 97.6 18 97.6 Comments ros as mentioned as above, other sys otherwise neg ROS: No Nausea General: Alert HEENT: Other (nc at perrl nose clear, shallow oropharynx. neck no lad, thyromegaly) Lungs: Other (bl diminished bs) Cardiovascular: Other (irreg irreg) Abdomen: Soft, Non-tender, Other (no mass) Neuro Exam: Alert Extremities: Other (2+edema) Skin: Warm Labs Laboratory Tests Test 10/26/17 16:45 10/26/17 21:02 10/27/17 07:25 10/27/17 10:30 Glucose (Fingerstick) 346 mg/dL (70-99) 247 mg/dL (70-99) 200 mg/dL (70-99) White Blood Count 7.8 x10^3/uL (4.0-11.0) Red Blood Count 3.91 x10^6/uL (4.30-5.70) Hemoglobin 12.5 g/dL (13.0-17.5) Hematocrit 38.3 % (39.0-53.0) Mean Corpuscular Volume 98 fL (79-100) Mean Corpuscular Hemoglobin 32 pg (25-35) Mean Corpuscular Hemoglobin Concent 33 g/dL (31-37) Red Cell Distribution Width 16.1 % (11.5-14.5) Platelet Count 386 x10^3/uL (140-400) Neutrophils (%) (Auto) 69 % (31-73) Lymphocytes (%) (Auto) 14 % (24-48) Monocytes (%) (Auto) 14 % (0-9) Eosinophils (%) (Auto) 3 % (0-3) Basophils (%) (Auto) 1 % (0-3) Neutrophils # (Auto) 5.4 x10^3uL (1.8-7.7) Lymphocytes # (Auto) 1.1 x10^3/uL (1.0-4.8) Monocytes # (Auto) 1.1 x10^3/uL (0.0-1.1) Eosinophils # (Auto) 0.2 x10^3/uL (0.0-0.7) Basophils # (Auto) 0.0 x10^3/uL (0.0-0.2) Prothrombin Time 19.3 SEC (11.7-14.0) Prothromb Time International Ratio 1.7 (0.8-1.1) Sodium Level 137 mmol/L (136-145) Potassium Level 3.6 mmol/L (3.5-5.1) Chloride Level 98 mmol/L (98-107) Carbon Dioxide Level 38 mmol/L (21-32) Anion Gap 1 (6-14) Blood Urea Nitrogen 27 mg/dL (8-26) Creatinine 1.2 mg/dL (0.7-1.3) Estimated GFR (Cockcroft-Gault) 73.8 Glucose Level 206 mg/dL (70-99) Calcium Level 8.9 mg/dL (8.5-10.1) Test 10/27/17 11:12 10/27/17 16:55 10/27/17 17:49 10/27/17 19:41 Glucose (Fingerstick) 145 mg/dL (70-99) 56 mg/dL (70-99) 113 mg/dL (70-99) 197 mg/dL (70-99) Test 10/28/17 03:25 10/28/17 07:51 10/28/17 11:48 Prothrombin Time 16.9 SEC (11.7-14.0) Prothromb Time International Ratio 1.4 (0.8-1.1) Sodium Level 135 mmol/L (136-145) Potassium Level 4.0 mmol/L (3.5-5.1) Chloride Level 97 mmol/L (98-107) Carbon Dioxide Level 40 mmol/L (21-32) Anion Gap -2 (6-14) Blood Urea Nitrogen 27 mg/dL (8-26) Creatinine 1.2 mg/dL (0.7-1.3) Estimated GFR (Cockcroft-Gault) 73.8 Glucose Level 345 mg/dL (70-99) Calcium Level 8.8 mg/dL (8.5-10.1) Glucose (Fingerstick) 230 mg/dL (70-99) 166 mg/dL (70-99) Laboratory Tests Test 10/27/17 16:55 10/27/17 17:49 10/27/17 19:41 10/28/17 03:25 Glucose (Fingerstick) 56 mg/dL (70-99) 113 mg/dL (70-99) 197 mg/dL (70-99) Prothrombin Time 16.9 SEC (11.7-14.0) Prothromb Time International Ratio 1.4 (0.8-1.1) Sodium Level 135 mmol/L (136-145) Potassium Level 4.0 mmol/L (3.5-5.1) Chloride Level 97 mmol/L (98-107) Carbon Dioxide Level 40 mmol/L (21-32) Anion Gap -2 (6-14) Blood Urea Nitrogen 27 mg/dL (8-26) Creatinine 1.2 mg/dL (0.7-1.3) Estimated GFR (Cockcroft-Gault) 73.8 Glucose Level 345 mg/dL (70-99) Calcium Level 8.8 mg/dL (8.5-10.1) Test 10/28/17 07:51 10/28/17 11:48 Glucose (Fingerstick) 230 mg/dL (70-99) 166 mg/dL (70-99) Medications Active Scripts Medications Dose Route/Sig Max Daily Dose Days Date Category Hydrochlorothiazide Tablet (Hydrochlorothiazide) 25 Mg Tablet 1 Tab PO DAILY 10/24/17 Reported Percocet 10-325 Mg Tablet (Oxycodone/Acetaminophen) 1 Each Tablet 2 Tab PO QID PRN 08/30/17 Reported Diltiazem 24HR Cd (Diltiazem Hcl) 120 Mg Cap.er.24h 240 Mg PO DAILY 08/30/17 Reported Humalog Kwikpen (Insulin Lispro) 200 Unit/1 Ml Insuln.pen 25 Unit SQ TIDWMEALS 08/30/17 Reported Levemir (Insulin Detemir) 100 Unit/1 Ml Vial 50 Unit SQ QHS 08/30/17 Reported Metoprolol Tartrate 50 Mg Tablet 1 Tab PO BID 08/30/17 Reported Bumetanide 2 Mg Tablet 1 Tab PO TID 08/30/17 Reported Coumadin (Warfarin Sodium) 10 Mg Tablet 1 Tab PO QMWF 6/15/18 Reported Coumadin (Warfarin Sodium) 10 Mg Tablet 1 Tab PO QSU 08/30/17 Reported Warfarin Sodium 3 Mg Tablet 1 Tab PO QTUTHSA 08/30/17 Reported Atorvastatin Calcium 40 Mg Tablet 1 Tab PO QHS 08/30/17 Reported Aspirin Ec (Aspirin) 81 Mg Tablet.dr 1 Tab PO DAILY 08/30/17 Reported Potassium Chloride 20 Meq Tablet.er 20 Meq PO TID 08/30/17 Reported Losartan Potassium 50 Mg Tablet 50 Mg PO DAILY 08/30/17 Reported Zofran Odt (Ondansetron) 4 Mg Tab.rapdis 1 Tab SL PRN Q8HRS PRN 04/09/17 Rx Combivent Respimat Inhal (Ipratropium/Albuterol Sulfate) 4 Gm Aer.w.adap 2 Inh IH QID 06/27/16 Reported Albuterol Sulfate Conc Neb Soln (Albuterol Sulfate) 2.5 Mg/0.5 Ml Vial.neb 1 Vial NEB PRN Q6HRS PRN 06/27/16 Reported Comments cxr reviewed, 1. Mild congestive changes. 2. Mild left lung base airspace opacity could be atelectasis or infiltrate or due to overlapping soft tissue. Impression . 1. [id number] hypercapnic respiratory failure, contributed by narcotics and also related to underlying obesity hypoventilation syndrome. 2. chronic obstructive pulmonary disease. 3. Lower extremity edema with erythema, being treated for cellulitis. 4. Cocaine abuse. 5. Chronic anticoagulation with Coumadin. 6. obesity, ? eliana/ohs 7. afib 8. chf 9. ckd Plan . RECOMMENDATIONS: 1. fi02 titration, bipap prn, 2. avoid oversedation. 3. elevate hob 4. Antibiotics per Infectious Diseases. 5. Anticoagulation per PCP. monitor for bleeding 6. Continue bronchodilators. 7. protonix for stress ulcer prophylaxis 8. psg as out pt, eliana the importance of eliana diagnosis and tx discussed 9. keep I<O, bumex, monitor k, cr Discussed with PT SHELLY CHA MD Oct 28, 2017 13:09
[2017-10-28 15:00] VITALS: BP 107/79
[2017-10-28] MEDS ORDERED: WARFARIN 5 MG TABLET. PO ONE (16:00)
[2017-10-28 19:00] VITALS: BP 110/80
[2017-10-28] MEDS ORDERED: diphenhydrAMINE 50 MG/ML VIAL IVP ONE (20:00)
[2017-10-28] MEDS: ATORVASTATIN CALCIUM 40 MG TABLET. PO SCH (20:38)
[2017-10-28] MEDS: INSULIN GLARGINE 300 UNITS/3 ML INSULN.PEN. SQ SCH (20:43)
[2017-10-28 23:00] VITALS: BP 147/87
[2017-10-29 01:26] LABS: CREATININE 1.4 mg/dL (0.7-1.3); GFR 61.7
[2017-10-29 01:33] LABS: VANC TR 13.6 mcg/mL (10.0-20.0)
[2017-10-29] MEDS: HALOPERIDOL LACTATE 5 MG/ML VIAL. IVP PRN (01:45)
[2017-10-29] MEDS: VANCOMYCIN 2 GM in IV NORMAL SALINE 500ML BAG 500 ML IV SCH (02:06)
[2017-10-29] MEDS: VANCOMYCIN PER PHARMACY MC PRN ×3 (02:46→03:25)
[2017-10-29 03:00] VITALS: BP 139/87
[2017-10-29 07:00] VITALS: BP 121/84
[2017-10-29] MEDS: IPRATRPIUM/ALBUTEROL 0.5/2.5MG 3 ML NEBU. NEB SCH ×2 (07:23→11:09)
[2017-10-29] MEDS: LOSARTAN POTASSIUM 50 MG TABLET. PO SCH (08:04)
[2017-10-29] MEDS: BUMETANIDE 1 MG TABLET. PO SCH ×3 (08:04→16:18)
[2017-10-29] MEDS: ASPIRIN ENTERIC COATED 81 MG TABLET.DR. PO SCH (08:05)
[2017-10-29] MEDS: hydroCHLOROthiazide 25 MG TABLET PO SCH (08:05)
[2017-10-29] MEDS: POTASSIUM CHLORIDE 20 MEQ TABLET.ER. PO SCH ×3 (08:06→16:18)
[2017-10-29] MEDS: LACTOBACILLUS RHAMNOSUS GG 1 CAPSULE. PO SCH (08:06)
[2017-10-29] MEDS: METOPROLOL TART IMMED RELEASE 50 MG TABLET. PO SCH (08:07)
[2017-10-29] MEDS: INSULIN LISPRO 300 UNITS/3 ML INSULN.PEN. SQ SCH ×4 (08:11→12:21)
[2017-10-29] MEDS: ALPRAZolam 0.25 MG TABLET PO PRN (09:07)
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
--- NOTE | 2017-10-29 10:54 | PDOC ---
PULMONARY PROGRESS NOTES Subjective on 02, no soa Vitals Vital Signs Date Time Temp Pulse Resp B/P (MAP) Pulse Ox O2 Delivery O2 Flow Rate FiO2 10/29/17 08:07 120 121/84 10/29/17 08:00 Nasal Cannula 3.0 10/29/17 07:00 97.9 20 92 97.9 Comments ros as mentioned as above, other sys otherwise neg ROS: No Nausea General: Alert HEENT: Other (nc at perrl nose clear, shallow oropharynx. neck no lad, thyromegaly) Lungs: Other (bl diminished bs) Cardiovascular: Other (irreg irreg) Abdomen: Soft, Non-tender, Other (no mass) Neuro Exam: Alert Extremities: Other (2+edema) Skin: Warm Labs Laboratory Tests Test 10/27/17 11:12 10/27/17 16:55 10/27/17 17:49 10/27/17 19:41 Glucose (Fingerstick) 145 mg/dL (70-99) 56 mg/dL (70-99) 113 mg/dL (70-99) 197 mg/dL (70-99) Test 10/28/17 03:25 10/28/17 07:51 10/28/17 11:48 10/28/17 16:33 Prothrombin Time 16.9 SEC (11.7-14.0) Prothromb Time International Ratio 1.4 (0.8-1.1) Sodium Level 135 mmol/L (136-145) Potassium Level 4.0 mmol/L (3.5-5.1) Chloride Level 97 mmol/L (98-107) Carbon Dioxide Level 40 mmol/L (21-32) Anion Gap -2 (6-14) Blood Urea Nitrogen 27 mg/dL (8-26) Creatinine 1.2 mg/dL (0.7-1.3) Estimated GFR (Cockcroft-Gault) 73.8 Glucose Level 345 mg/dL (70-99) Calcium Level 8.8 mg/dL (8.5-10.1) Glucose (Fingerstick) 230 mg/dL (70-99) 166 mg/dL (70-99) 59 mg/dL (70-99) Test 10/28/17 16:35 10/28/17 17:33 10/28/17 20:09 10/29/17 00:45 Glucose (Fingerstick) 62 mg/dL (70-99) 144 mg/dL (70-99) 159 mg/dL (70-99) Prothrombin Time 16.0 SEC (11.7-14.0) Prothromb Time International Ratio 1.3 (0.8-1.1) Creatinine 1.4 mg/dL (0.7-1.3) Estimated GFR (Cockcroft-Gault) 61.7 Vancomycin Level Trough 13.6 mcg/mL (10.0-20.0) Vancomycin Last Dose Date 10/28/17 Vancomycin Last Dose Time 1300 Test 10/29/17 07:59 Glucose (Fingerstick) 230 mg/dL (70-99) Laboratory Tests Test 10/28/17 11:48 10/28/17 16:33 10/28/17 16:35 10/28/17 17:33 Glucose (Fingerstick) 166 mg/dL (70-99) 59 mg/dL (70-99) 62 mg/dL (70-99) 144 mg/dL (70-99) Test 10/28/17 20:09 10/29/17 00:45 10/29/17 07:59 Glucose (Fingerstick) 159 mg/dL (70-99) 230 mg/dL (70-99) Prothrombin Time 16.0 SEC (11.7-14.0) Prothromb Time International Ratio 1.3 (0.8-1.1) Creatinine 1.4 mg/dL (0.7-1.3) Estimated GFR (Cockcroft-Gault) 61.7 Vancomycin Level Trough 13.6 mcg/mL (10.0-20.0) Vancomycin Last Dose Date 10/28/17 Vancomycin Last Dose Time 1300 Medications Active Scripts Medications Dose Route/Sig Max Daily Dose Days Date Category Hydrochlorothiazide Tablet (Hydrochlorothiazide) 25 Mg Tablet 1 Tab PO DAILY 10/24/17 Reported Percocet 10-325 Mg Tablet (Oxycodone/Acetaminophen) 1 Each Tablet 2 Tab PO QID PRN 08/30/17 Reported Diltiazem 24HR Cd (Diltiazem Hcl) 120 Mg Cap.er.24h 240 Mg PO DAILY 08/30/17 Reported Humalog Kwikpen (Insulin Lispro) 200 Unit/1 Ml Insuln.pen 25 Unit SQ TIDWMEALS 08/30/17 Reported Levemir (Insulin Detemir) 100 Unit/1 Ml Vial 50 Unit SQ QHS 08/30/17 Reported Metoprolol Tartrate 50 Mg Tablet 1 Tab PO BID 08/30/17 Reported Bumetanide 2 Mg Tablet 1 Tab PO TID 08/30/17 Reported Coumadin (Warfarin Sodium) 10 Mg Tablet 1 Tab PO QMWF 08/30/17 Reported Coumadin (Warfarin Sodium) 10 Mg Tablet 1 Tab PO QSU 08/30/17 Reported Warfarin Sodium 3 Mg Tablet 1 Tab PO QTUTHSA 08/30/17 Reported Atorvastatin Calcium 40 Mg Tablet 1 Tab PO QHS 08/30/17 Reported Aspirin Ec (Aspirin) 81 Mg Tablet.dr 1 Tab PO DAILY 08/30/17 Reported Potassium Chloride 20 Meq Tablet.er 20 Meq PO TID 08/30/17 Reported Losartan Potassium 50 Mg Tablet 50 Mg PO DAILY 08/30/17 Reported Zofran Odt (Ondansetron) 4 Mg Tab.rapdis 1 Tab SL PRN Q8HRS PRN 04/09/17 Rx Combivent Respimat Inhal (Ipratropium/Albuterol Sulfate) 4 Gm Aer.w.adap 2 Inh IH QID 06/27/16 Reported Albuterol Sulfate Conc Neb Soln (Albuterol Sulfate) 2.5 Mg/0.5 Ml Vial.neb 1 Vial NEB PRN Q6HRS PRN 06/27/16 Reported Comments cxr reviewed, 1. Mild congestive changes. 2. Mild left lung base airspace opacity could be atelectasis or infiltrate or due to overlapping soft tissue. Impression . 1. [id number]-[id number] hypercapnic respiratory failure, contributed by narcotics and also related to underlying obesity hypoventilation syndrome. resolved 2. chronic obstructive pulmonary disease. 3. Lower extremity edema with erythema, being treated for cellulitis. 4. Cocaine abuse. 5. Chronic anticoagulation with Coumadin. 6. obesity, ? eliana/ohs 7. afib 8. chf 9. ckd Plan . RECOMMENDATIONS: 1. fi02 titration, bipap prn, 2. avoid oversedation. 3. elevate hob 4. Antibiotics per Infectious Diseases. 5. Anticoagulation per PCP. monitor for bleeding 6. Continue bronchodilators. 7. protonix for stress ulcer prophylaxis 8. psg as out pt, eliana the importance of eliana diagnosis and tx discussed 9. keep I<O, bumex, monitor k, cr Discussed with RN/ 6 min walk today. OK with dc to home with SHELLY BOLTON MD Oct 29, 2017 10:54
[2017-10-29 11:00] VITALS: BP 108/82
[2017-10-29 15:00] VITALS: BP 128/70
[2017-10-29] MEDS ORDERED: WARFARIN 5 MG TABLET. PO ONE (16:00)
== END 2017-10-29 16:41 | disposition home health service (06) | DRG 871 ==
LOC: ER 21:55 → 4 NORTH 10-24 01:30 → 1 WEST ICU 10-25 12:47 → 4 NORTH 10-26 10:31
PROVIDERS: ADMIT Internal Medicine; ATTEND Internal Medicine
PROC: 5A09357 Assistance with Respiratory Ventilation, Less than 24 Consecutive Hours, Continuous Positive Airway Pressure (ICD-10-PCS; principal; 2017-10-25)
DX: A41.9 Sepsis, unspecified organism (principal); N17.0 Acute kidney failure with tubular necrosis; J96.22 Acute and chronic respiratory failure with hypercapnia; I13.0 Hypertensive heart and chronic kidney disease with heart failure and stage 1 through stage 4 chronic kidney disease, or unspecified chronic kidney disease; Z68.42 Body mass index [BMI] 45.0-49.9, adult; I48.1 Persistent atrial fibrillation; L03.116 Cellulitis of left lower limb; E66.2 Morbid (severe) obesity with alveolar hypoventilation; E87.4 Mixed disorder of acid-base balance; I25.10 Atherosclerotic heart disease of native coronary artery without angina pectoris; I50.9 Heart failure, unspecified; J44.9 Chronic obstructive pulmonary disease, unspecified; E11.42 Type 2 diabetes mellitus with diabetic polyneuropathy; E11.22 Type 2 diabetes mellitus with diabetic chronic kidney disease; N18.9 Chronic kidney disease, unspecified; E03.9 Hypothyroidism, unspecified; F17.210 Nicotine dependence, cigarettes, uncomplicated; F19.10 Other psychoactive substance abuse, uncomplicated; I48.2 Chronic atrial fibrillation; E78.5 Hyperlipidemia, unspecified; F14.10 Cocaine abuse, uncomplicated; M19.90 Unspecified osteoarthritis, unspecified site; R04.0 Epistaxis; Z90.49 Acquired absence of other specified parts of digestive tract; Z88.5 Allergy status to narcotic agent; Z82.49 Family history of ischemic heart disease and other diseases of the circulatory system; Z79.01 Long term (current) use of anticoagulants; Z91.19 Patient's noncompliance with other medical treatment and regimen
CPT/HCPCS: 36415; 36600; 71045; 73560; 73630; 73700; 80048; 80053; 80202; 80307; 81001; 82550; 82565; 82805; 82962; 83605; 83735; 83880; 84145; 84484; 85025; 85610; 85651; 87040; 93005; 93971; 94618; 94640; 94660; 94760; 96365; 96375; 99406; J1200; J1630; J1815; J1956; J2060; J2310; J3010; J3370; J7030; J7040; J7620; 99285-25; G0479